=== PATIENT | female | born 1945 | race Asian ===

== ENCOUNTER 2017-07-31 14:20 | Inpatient (IN) | payer OTHER ==
--- NOTE | 2017-07-31 14:55 | PDOC ---
History of Present Illness - History of Present Illness Initial Comments: 07/31/17 15:07 Patient is a 71 F, with PMHx of diabetes, HTN, HLD, who was BIBA and presents s/ p fall today in front lawn. Patient states that she was on her phone and tripped on uneven pavement onto her left side. She was unable to walk or pick herself up. Family members called 911. She is currently complaining of pain to the left thigh. She states she is not in too much pain if she doesn't move her left leg but she is in severe pain if she palpates it or tries to move it. She denies recent fever, chills, chest pain, shortness of breath, nausea, vomiting, dizziness or lightheadedness. Social Hx: denies EtOH, tobacco, or drug use. Allergies: NKDA <Ruth Chacon - Last Filed: 07/31/17 15:07> <Natnaael Davis - Last Filed: 07/31/17 17:02> - General Chief Complaint: Injury Stated Complaint: LEFT THIGH PAIN Time Seen by Provider: 07/31/17 14:55 Past History <Ruth Chacon - Last Filed: 07/31/17 15:07> <Natanael Davis - Last Filed: 07/31/17 17:02> - Past Medical History Allergies/Adverse Reactions: Allergies Allergy/AdvReac Type Severity Reaction Status Date / Time No Known Allergies Allergy Verified 07/31/17 14:52 Home Medications: Ambulatory Orders Levothyroxine [Synthroid -] 50 mcg PO DAILY 07/31/17 Review of Systems - Review of Systems Comments:: 07/31/17 15:08 Constitutional: No recent illness; no fever Cardiovascular: No palpitations; no chest pain Pulmonary: No cough; no trouble breathing Gastrointestinal: No nausea; no vomiting; no diarrhea Genitourinary: No urinary problems; no hematuria Skin: No rash Musculoskeletal: +left thigh pain. Neurological: No weakness; no numbness; no Headache; no vertigo; no lightheadedness Psychiatric:No anxiety; no depression <Ruth Chacon - Last Filed: 07/31/17 15:07> *Physical Exam - Physical Exam Comments: 07/31/17 15:09 Vitals: Triage Vital signs reviewed General Appearance: no acute distress, well nourished well developed Head: Atraumatic Chest Wall: Nontender Cardiac: Regular rate and rhythm, no murmurs, no rubs, no gallops Lungs: Clear to auscultation bilateral, good air movement bilaterally Abdomen: Soft, non distended, normal bowel sounds, non tender to palpation Extremities: +severe pain to anterior aspect of left thigh. Skin: Warm and dry, no rashes or lesions, no rash, no petechiae Neuro: AOX3; Cranial Nerves 2-12 grossly intact. <Ruth Chacon - Last Filed: 07/31/17 15:07> ED Treatment Course - LABORATORY CBC & Chemistry Diagram: 07/31/17 15:45 07/31/17 15:45 <Natanael Davis - Last Filed: 07/31/17 17:02> Medical Decision Making - Medical Decision Making 07/31/17 16:51 Mechanical fall possible hip fracture IV pain medication given x-rays pendings Dr. Harrell to follow up xray labs and dispo <Natanael Davis - Last Filed: 07/31/17 17:02> *DC/Admit/Observation/Transfer - Attestations Scribe Attestion: 07/31/17 15:11 Documentation prepared by Ruth Chacon, acting as director medical surgical for Natanael Davis MD. <Ruth Chacon - Last Filed: 07/31/17 15:07> <Natanael Davis - Last Filed: 07/31/17 17:02> Diagnosis at time of Disposition: Leg pain Qualifiers: Laterality: left Qualified Code(s): M79.605 - Pain in left leg - Discharge Dispostion Condition at time of disposition: Good
[2017-07-31] MEDS ORDERED: morphine CARPU-JECT 4 MG/1 ML DISP.SYRIN IVPUSH ONE ×2 (15:01→17:14)
[2017-07-31 15:21] VITALS: BMI 29.2
[2017-07-31] MEDS ORDERED: morphine SULFATE 4 MG/ML VIAL ONE ×3 (15:37→20:29)
[2017-07-31 16:08] LABS: MEAN PLT VOLUME 12.9 fl (7.5-11.1); NEUT % 87.3 % (42.8-82.8); WHITE BLOOD COUNT 11.9 K/mm3 (4.0-10.8)
[2017-07-31 16:14] LABS: BASO % 0.1 % (0-2.0); EOS % 0.5 % (0-4.5); HEMATOCRIT 38.3 % (32.4-45.2); HEMOGLOBIN 12.1 GM/dl (10.7-15.3); LYMPH % 8.3 % (8-40); MCH 25.4 pg (25.7-33.7); MCHC 31.7 g/dl (32.0-36.0); MEAN CELL VOLUME 80.1 fl (80-96); MONO % 3.8 % (3.8-10.2); PLATELET COUNT 142 K/MM3 (134-434); RBC 4.79 M/mm3 (3.60-5.2); RDW 13.8 % (11.6-15.6)
[2017-07-31 16:19] LABS: ADD RBC MORPHOLOGY YES
[2017-07-31 16:26] LABS: ALBUMIN 3.6 g/dl (3.5-5.0); ALK PHOS 104 U/L (32-92); ANION GAP 10 (8-16); BILIRUBIN,TOTAL 0.8 mg/dl (0.2-1.0); BLOOD UREA NITROGEN 19 mg/dl (7-18); CALCIUM 8.9 mg/dl (8.4-10.2); CHLORIDE 99 mmol/L (98-107); CO2 27 mmol/L (22-28); CREATININE 0.9 mg/dl (0.6-1.3); GLUCOSE,RANDOM 131 mg/dl (74-106); POTASSIUM 3.8 mmol/L (3.5-5.1); SGOT/AST 27 U/L (10-42); SGPT/ALT 23 U/L (10-40); SODIUM 136 mmol/L (136-145); TOT PROT 7.8 g/dl (6.4-8.3)
[2017-07-31 16:31] LABS: ACTIVATED PTT 28.4 SECONDS (24.0-38.9)
[2017-07-31 16:35] LABS: INR 1.14 (0.82-1.09); PROTHROMBIN TIME (PATIENT) 12.7 SEC (10.2-13.0)
[2017-07-31 16:52] LABS: MACROCYTOSIS 1+; PLATELET ESTIMATE ADEQUATE
--- NOTE | 2017-07-31 17:34 | PDOC ---
*Physical Exam - Vital Signs Last Vital Signs Temp Pulse Resp BP Pulse Ox 98.1 F 100 H 18 130/80 100 07/31/17 14:52 07/31/17 14:52 07/31/17 14:52 07/31/17 14:52 07/31/17 14:52 ED Treatment Course - LABORATORY CBC & Chemistry Diagram: 07/31/17 15:45 07/31/17 15:45 - ADDITIONAL ORDERS Additional order review: Laboratory Results 07/31/17 07/31/17 15:45 15:45 PT with INR 12.7 INR 1.14 PTT (Actin FS) 28.4 Sodium 136 Potassium 3.8 Chloride 99 Carbon Dioxide 27 Anion Gap 10 BUN 19 H Creatinine 0.9 Creat Clearance w eGFR > 60 Random Glucose 131 H Calcium 8.9 Total Bilirubin 0.8 AST 27 ALT 23 Alkaline Phosphatase 104 H Total Protein 7.8 Albumin 3.6 07/31/17 15:45 RBC 4.79 MCV 80.1 MCHC 31.7 L RDW 13.8 MPV 12.9 H Neutrophils % 87.3 H Lymphocytes % 8.3 Monocytes % 3.8 Eosinophils % 0.5 Basophils % 0.1 - Medications Given in the ED: ED Medications Discontinued Medications Generic Name Dose Route Start Last Admin Trade Name Freq PRN Reason Stop Dose Admin Morphine Sulfate 4 mg 07/31/17 15:01 07/31/17 15:50 Morphine Injection - IVPUSH 07/31/17 15:02 4 mg ONCE ONE Administration Morphine Sulfate 4 mg 07/31/17 17:14 07/31/17 17:20 Morphine Injection - IVPUSH 07/31/17 17:15 4 mg ONCE ONE Administration Medical Decision Making - Medical Decision Making 07/31/17 17:33 I received patient on signout. She has a comminuted proximal femur fracture. SHe will requirte to [facility] to our [facility] facility and both hospitalist and ortho are aware. 08/01/17 02:07 Pt was transferred to the [facility] where she will be medically cleared for operative repair on late Thursday or Thursday *DC/Admit/Observation/Transfer Diagnosis at time of Disposition: Fracture of proximal end of left femur Leg pain Qualifiers: Laterality: left Qualified Code(s): M79.605 - Pain in left leg - Discharge Dispostion Condition at time of disposition: Guarded Admit: Yes - Referrals - Patient Instructions - Post Discharge Activity
[2017-07-31] MEDS ORDERED: morphine SULFATE 4 MG/ML VIAL IVPUSH PRN (18:15)
[2017-07-31 19:36] LABS: URINE APPEARANCE Clear; URINE BILIRUBIN Negative (NEGATIVE); URINE BLOOD Negative (NEGATIVE); URINE GLUCOSE (UA) Negative (NEGATIVE); URINE KETONE Negative (NEGATIVE); URINE LEUK ESTERASE Negative (NEGATIVE); URINE NITRITE Negative (NEGATIVE); URINE PROTEIN Negative (NEGATIVE); URINE UROBILINOGEN 0.2 (0.2-1.0)
[2017-07-31 19:42] LABS: URINE COLOR YELLOW
[2017-07-31] MEDS ORDERED: morphine SULFATE 4 MG/ML VIAL IVPUSH ONE (20:35)
[2017-07-31] MEDS ORDERED: ACETAMINOPHEN 325 MG TABLET (FP) PO PRN (22:24)
--- NOTE | 2017-07-31 22:28 | HP ---
CHIEF COMPLAINT: Fall while on phone in front lawn PCP: None Limitations to hx: pt very sedated HISTORY OF PRESENT ILLNESS: Pt is 71 yo F with pmh of NIDDM, HTN, HLD, hypothyroidism who presents from [facility] s/p a mechanical fall this AM. Per record, pt was ambulating in front of house while talking on phone and tripped on "uneven pavement", landing on her L side. After fall, pt endorsed severe pain in anterior thigh and was unable to walk or stand. Family alerted EMS and pt was brought into [facility] ED. On exam, pt very somnolent after receiving multiple rounds of morphine IV. Denied any pain at the time. Per record, pt denies fever, chills, chest pain, sob, N/V, dizziness or lightheadness. ER course was notable for: (1)L femoral XR with comminuted proximal femur fx (2)WBC 11.9 (3)Morphine IV x3 (4/4/2mg) Recent Travel: none PAST MEDICAL HISTORY: DM HTN HLD Hypothyroidism PAST SURGICAL HISTORY: Unknown Social History: Smoking:No Alcohol: no Drugs: no Family History: NC Allergies No Known Allergies Allergy (Verified 07/31/17 14:52) HOME MEDICATIONS: Home Medications Medication Instructions Recorded Alprazolam [Xanax] 0.25 mg PO HS 07/31/17 Atorvastatin Ca [Lipitor] 10 mg PO HS 07/31/17 Diclofenac Sodium [Diclofenac 100 mg PO DAILY PRN 07/31/17 Sodium ER] Glimepiride 2 mg PO DAILY 07/31/17 Levothyroxine [Synthroid -] 50 mcg PO DAILY 07/31/17 Mag Hydrox/Aluminum Hyd/Simeth 1 each PO PRN PRN 07/31/17 [Gelusil Tablet Chewable] Metformin HCl [Metformin HCl ER] 1,000 mg PO DAILY 07/31/17 Nitroglycerin ER Capsule - 2.5 mg PO BID 07/31/17 Pantoprazole Sodium [Protonix -] 40 mg PO DAILY 07/31/17 Patient Specific Medications [Pt 10 mg PO DAILY 07/31/17 Own Med Drawer -] Patient Specific Medications [Pt 20 mg PO DAILY 07/31/17 Own Med Drawer -] Telmisartan [Micardis] 40 mg PO HS 07/31/17 REVIEW OF SYSTEMS CONSTITUTIONAL: Absent: fever, chills, diaphoresis, generalized weakness, malaise, loss of appetite, weight change HEENT: Absent: rhinorrhea, nasal congestion, throat pain, throat swelling, difficulty swallowing, mouth swelling, ear pain, eye pain, visual changes CARDIOVASCULAR: Absent: chest pain, syncope, palpitations, irregular heart rate, lightheadedness , peripheral edema RESPIRATORY: Absent: cough, shortness of breath, dyspnea with exertion, orthopnea, wheezing, stridor, hemoptysis GASTROINTESTINAL: Absent: abdominal pain, abdominal distension, nausea, vomiting, diarrhea, constipation, melena, hematochezia GENITOURINARY: Absent: dysuria, frequency, urgency, hesitancy, hematuria, flank pain, genital pain MUSCULOSKELETAL: L thigh pain Absent: myalgia, arthralgia, joint swelling, back pain, neck pain SKIN: Absent: rash, itching, pallor HEMATOLOGIC/IMMUNOLOGIC: Absent: easy bleeding, easy bruising, lymphadenopathy, frequent infections ENDOCRINE: Absent: unexplained weight gain, unexplained weight loss, heat intolerance, cold intolerance NEUROLOGIC: Absent: headache, focal weakness or paresthesias, dizziness, unsteady gait, seizure, mental status changes, bladder or bowel incontinence PSYCHIATRIC: Absent: anxiety, depression, suicidal or homicidal ideation, hallucinations. PHYSICAL EXAMINATION Vital Signs - 24 hr 07/31/17 07/31/17 07/31/17 14:52 19:00 20:10 Temperature 98.1 F 98.6 F 98.6 F Pulse Rate 100 H 89 Pulse Rate [ 89 Right Radial] Respiratory 18 18 18 Rate Blood Pressure 130/80 136/78 Blood Pressure 136/78 [Left Arm] O2 Sat by Pulse 100 98 Oximetry (%) 07/31/17 20:40 Temperature 98.6 F Pulse Rate 89 Pulse Rate [ Right Radial] Respiratory 18 Rate Blood Pressure 136/78 Blood Pressure [Left Arm] O2 Sat by Pulse Oximetry (%) GENERAL: Elderly, very somnolent, NAD HEAD: NCAT; no ecchymoses, bone deformities or edema EYES: Pupils equal, round and reactive to light, extraocular movements intact, sclera anicteric, conjunctiva clear. No lid lag. EARS, NOSE, THROAT: Ears normal, nares patent, oropharynx clear without exudates. Moist mucous membranes. NECK: Normal range of motion, supple without lymphadenopathy, JVD, or masses. LUNGS: Breath sounds equal, clear to auscultation bilaterally. No wheezes, and no crackles. No accessory muscle use. HEART: Regular rate and rhythm, normal S1 and S2 without murmur, rub or gallop. ABDOMEN: Globular. Soft, nontender, normoactive bowel sounds, no guarding, no rebound, no masses. No hepatomegaly or splenomegaly. MUSCULOSKELETAL: Normal range of motion at all joints. No bony deformities or tenderness. No CVA tenderness. UPPER EXTREMITIES: 2+ pulses, warm, well-perfused. No cyanosis. No clubbing. No peripheral edema. LOWER EXTREMITIES: 2+ DP/PT pulses appreciable in LEs. Preserved sensation to touch BL in LEs. Movement in L hip limited by pain, splint. No notable edema or difference in caliber between thighs. No ecchymoses noted. NEUROLOGICAL: Cranial nerves grossly intact. Moving all extremities. PSYCHIATRIC: Very somnolent; interactive, pleasant Laboratory Results - last 24 hr CBC, BMP 07/31/17 15:45 07/31/17 15:45 07/31/17 07/31/17 07/31/17 15:45 15:45 15:45 WBC 11.9 H RBC 4.79 Hgb 12.1 Hct 38.3 MCV 80.1 MCH 25.4 L MCHC 31.7 L RDW 13.8 Plt Count 142 MPV 12.9 H Neutrophils % 87.3 H Lymphocytes % 8.3 Monocytes % 3.8 Eosinophils % 0.5 Basophils % 0.1 Hypochromia 1+ Platelet Estimate Adequate Platelet Comment Few large plts. Macrocytosis 1+ PT with INR 12.7 INR 1.14 PTT (Actin FS) 28.4 Sodium 136 Potassium 3.8 Chloride 99 Carbon Dioxide 27 Anion Gap 10 BUN 19 H Creatinine 0.9 Creat Clearance w eGFR > 60 Random Glucose 131 H Calcium 8.9 Total Bilirubin 0.8 AST 27 ALT 23 Alkaline Phosphatase 104 H Total Protein 7.8 Albumin 3.6 Urine Color Urine Appearance Urine pH Ur Specific [place] Urine Protein Urine Glucose (UA) Urine Ketones Urine Blood Urine Nitrite Urine Bilirubin Urine Urobilinogen Ur Leukocyte Esterase Blood Type Antibody Screen 07/31/17 07/31/17 07/31/17 15:45 15:55 19:15 WBC RBC Hgb Hct MCV MCH MCHC RDW Plt Count MPV Neutrophils % Lymphocytes % Monocytes % Eosinophils % Basophils % Hypochromia Platelet Estimate Platelet Comment Macrocytosis PT with INR INR PTT (Actin FS) Sodium Potassium Chloride Carbon Dioxide Anion Gap BUN Creatinine Creat Clearance w eGFR Random Glucose Calcium Total Bilirubin AST ALT Alkaline Phosphatase Total Protein Albumin Urine Color Yellow Urine Appearance Clear Urine pH 7.0 Ur Specific [place] 1.020 Urine Protein Negative Urine Glucose (UA) Negative Urine Ketones Negative Urine Blood Negative Urine Nitrite Negative Urine Bilirubin Negative Urine Urobilinogen 0.2 Ur Leukocyte Esterase Negative Blood Type O POSITIVE O POSITIVE Antibody Screen Negative No micro CXR 07/31 - Pending read Hip/femur XR 07/31 - Comminuted fx of the proximal femur noted. ASSESSMENT/PLAN: Pt is 71 yo F with pmh of NIDDM, HTN, HLD, hypothyroidism who presents from [facility] s/p a mechanical fall this AM. Now with imaging confirmed L femur fx. Plan for surgical correction tomorrow with Dr. Shields. #L femur fx - comminuted proximal L femur fx on XR - Ortho consulted - NPO after midnight - Pain control with IV tylenol - zofran IV for N/V - Bedrest - Splint applied - Neuro/vascular checks in L legs Q1h - Cardiac clearance for surgery - Echo - CBC, coags, CMP, type and cross - For likely surgical correction of fx tomorrow with Dr. Shields #HTN - hold ARB for now #HLD -c/w home statin #Hypothyroidism -c/w home synthroid #NIDDM - ISS - BGMs q4h FEN D5w-1/2 NS 75cc/hr Daily lytes NPO after midnight PPX Lovenox Plan discussed with attending, Dr. Francisco Ma, PGY1 Visit type - Emergency Visit Emergency Visit: Yes ED Registration Date: 07/31/17 Care time: The patient presented to the Emergency Department on the above date and was hospitalized for further evaluation of their emergent condition. - New Patient This patient is new to me today: Yes Date on this admission: 07/31/17 - Critical Care Critical Care patient: No Hospitalist Screening - Colonoscopy Questionnaire Colonoscopy Questionnaire: Colonoscopy Questionnaire - Patient: 50 - 75 years old and never had a screening colonoscopy: Unknown History of colon or rectal polyps, or CA: Unknown History of IBD, Crohn's disease or UC: Unknown History of abdominal radiation therapy as a child: Unknown - Relative: 1 with colon or rectal CA, or polyps at age 60 or younger: Unknown Colon or rectal CA diagnosed at age 45 or younger: Unknown Multiple relatives with colon or rectal CA: Unknown - Outcome: Screening Result: Negative Screen
[2017-07-31] MEDS ORDERED: DEXTROSE 5%-0.45% SALINE 1,000 ML IV SCH (22:30)
--- NOTE | 2017-07-31 22:51 | PN ---
Teaching Attending Note Name of Resident: Raffaele Ma ATTENDING PHYSICIAN STATEMENT I saw and evaluated the patient. Chart, data, imaging reviewed. I reviewed the resident's note and discussed the case with the resident. I agree with the resident's findings and plan as documented. History was obtained from chart and also via translation, Dr. Lopez who speaks [place] SUBJECTIVE: 71 F, with PMHx of diabetes, HTN, HLD, who was BIBA after fall after stepping on uneven pavement on 07/31, tripped, fell and landed on left hip. Denied any head trauma or LOC. She was found to have displaced left femur fracture. Dr. Shields of orthopedics is aware of case. She was given morphine in ER and subsequently developed nausea and vomiting. OBJECTIVE: Last Vital Signs Temp Pulse Resp BP Pulse Ox 98.6 F 89 18 136/78 98 07/31/17 20:40 07/31/17 20:40 07/31/17 20:40 07/31/17 20:40 07/31/17 19:00 general- vomiting at bedside heent- atraumatic, normocephalic, Perrla, moist mucous membranes Neck- supple cv-s1+S2+rrr chest - cta b/l abdomen- soft, nt, bs+, no masses ext- left lower ext- immobilized, sensation intact, no hematomas, or signs of vascular compromise. DP pulses intact b/l Abnormal Lab Results 07/31/17 07/31/17 15:45 15:45 WBC 11.9 H MCH 25.4 L MCHC 31.7 L MPV 12.9 H Neutrophils % 87.3 H BUN 19 H Random Glucose 131 H Alkaline Phosphatase 104 H EKG - Left axis deviation, possible LVH, RBBB xray of left hip- grossly displaced left femur fracture ASSESSMENT AND PLAN: #71yo woman woman with acute left femur fracture, left lower extremity neurovascularly and neurologically intact. Will need cardiology clearance as ekg abnormal. -admit to med/surg -pain control- no morphine as developed nausea and vomiting, use IV tylenol, toradol prn -left leg immobilization, splint -zofran prn if nausea/vomiting -elevate head of bed 30 degres -galo IV fluid hydration -transthoracic echo -cardiology evaluation for medical clearance -enoxaparin prophylactic dose -orthopedics consult -neuro checks of lower extremity q4hrs
[2017-07-31] MEDS ORDERED: ONDANSETRON 4 MG/2 ML VIAL IVPUSH PRN (23:02)
[2017-07-31] MEDS ORDERED: ACETAMINOPHEN 1000 MG/100 ML VIAL (NON FORMULARY) IVPB PRN (23:03)
[2017-07-31] MEDS ORDERED: ENOXAPARIN NA (PORCINE) 40 MG/0.4 ML DISP.SYRIN SQ ONE (23:32)
[2017-08-01] MEDS ORDERED: ENOXAPARIN NA (PORCINE) 40 MG/0.4 ML DISP.SYRIN SQ ONE (00:30)
[2017-08-01] MEDS: INSULIN SLIDING SCALE (NOVOLOG) 1 VIAL SQ SCH ×4 (06:25→22:18)
[2017-08-01] MEDS: LEVOTHYROXINE NA 50 MCG TABLET (FP) PO SCH (06:25)
[2017-08-01 07:56] LABS: BASO % 0.2 % (0-2.0); HEMOGLOBIN 9.7 GM/dL (10.7-15.3); LYMPH % 11.6 % (8-40); MCH 26.1 pg (25.7-33.7); MCHC 32.4 g/dl (32.0-36.0); MEAN CELL VOLUME 80.5 fl (80-96); MEAN PLT VOLUME 11.6 fl (7.5-11.1); MONO % 6.9 % (3.8-10.2); NEUT % 81.3 % (42.8-82.8); PLATELET COUNT 102 K/MM3 (134-434); RBC 3.73 M/mm3 (3.60-5.2); RDW 14.7 % (11.6-15.6); WHITE BLOOD COUNT 7.8 K/mm3 (4.0-10.0)
[2017-08-01 07:59] LABS: INR 1.16 (0.82-1.09); PROTHROMBIN TIME (PATIENT) 13.1 SEC (9.98-11.88)
[2017-08-01 08:24] LABS: CHLORIDE 101 mmol/L (98-107); POTASSIUM 3.9 mmol/L (3.5-5.1); SODIUM 137 mmol/L (136-145)
[2017-08-01 08:31] LABS: ALBUMIN 2.9 g/dl (3.4-5.0); ALK PHOS 101 U/L (45-117); ANION GAP 8 (8-16); BILIRUBIN,TOTAL 0.6 mg/dL (0.2-1.0); BLOOD UREA NITROGEN 18 mg/dL (7-18); CALCIUM 7.8 mg/dL (8.5-10.1); CO2 28 mmol/L (21-32); CREATININE 0.7 mg/dL (0.55-1.02); GLUCOSE,RANDOM 232 mg/dL (74-106); MAGNESIUM 1.8 mg/dL (1.8-2.4); PHOSPHOROUS 3.3 mg/dL (2.5-4.9); SGOT/AST 22 U/L (15-37); SGPT/ALT 20 U/L (12-78); TOT PROT 6.6 g/dl (6.4-8.2)
--- NOTE | 2017-08-01 10:05 | PN ---
Progress Note (short form) - Note Progress Note: c/o bladder pain and difficulty urinating. denies CP, SOB, fever, chills, N/V/C/ D. last BM 2 days ago Current Medications Generic Name Dose Route Start Last Admin Trade Name Freq PRN Reason Stop Dose Admin Acetaminophen 1,000 mg 07/31/17 23:03 Ofirmev Injection - IVPB Q6H PRN PAIN LEVEL 4 - 6 Dextrose/Sodium Chloride 1,000 mls @ 75 mls/hr 07/31/17 22:30 08/01/17 00:39 D5-1/2ns - IV 75 mls/hr ASDIR MARY Administration Insulin Aspart 1 vial 08/01/17 07:00 08/01/17 06:25 Novolog Vial Sliding Scale - SQ Not Given ACHS [facility] Protocol Levothyroxine Sodium 50 mcg 08/01/17 07:00 08/01/17 06:25 Synthroid - PO 50 mcg DAILY@0700 MARY Administration Ondansetron HCl 4 mg 07/31/17 23:02 Zofran Injection IVPUSH Q4H PRN NAUSEA AND/OR VOMITING Last Vital Signs Temp Pulse Resp BP Pulse Ox 98.3 F 106 H 18 147/90 93 L 08/01/17 06:47 08/01/17 06:47 08/01/17 06:47 08/01/17 06:47 07/31/17 21:45 General NAD CV S1 S2 RRR no murmur/rub/gallop Lungs CTA B/L no wheezing/rales/rhonchi Abdomen soft +distended +diffuse tenderness no rebound or guarding +suprapubic distnetion Extremities LLE shortened and externally rotated. no edema CBCD WBC 7.8 K/mm3 (4.0-10.0) 08/01/17 06:55 RBC 3.73 M/mm3 (3.60-5.2) 08/01/17 06:55 Hgb 9.7 GM/dL (10.7-15.3) L 08/01/17 06:55 Hct 30.0 % (32.4-45.2) L 08/01/17 06:55 MCV 80.5 fl (80-96) 08/01/17 06:55 MCHC 32.4 g/dl (32.0-36.0) 08/01/17 06:55 RDW 14.7 % (11.6-15.6) 08/01/17 06:55 Plt Count 102 K/MM3 (134-434) L 08/01/17 06:55 MPV 11.6 fl (7.5-11.1) H 08/01/17 06:55 CMP Sodium 137 mmol/L (136-145) 08/01/17 06:55 Potassium 3.9 mmol/L (3.5-5.1) 08/01/17 06:55 Chloride 101 mmol/L (98-107) 08/01/17 06:55 Carbon Dioxide 28 mmol/L (21-32) 08/01/17 06:55 Anion Gap 8 (8-16) 08/01/17 06:55 BUN 18 mg/dL (7-18) 08/01/17 06:55 Creatinine 0.7 mg/dL (0.55-1.02) 08/01/17 06:55 Creat Clearance w eGFR > 60 (>60) 08/01/17 06:55 Calcium 7.8 mg/dL (8.5-10.1) L 08/01/17 06:55 Total Bilirubin 0.6 mg/dL (0.2-1.0) 08/01/17 06:55 AST 22 U/L (15-37) 08/01/17 06:55 ALT 20 U/L (12-78) 08/01/17 06:55 Alkaline Phosphatase 101 U/L (45-117) 08/01/17 06:55 Total Protein 6.6 g/dl (6.4-8.2) 08/01/17 06:55 Albumin 2.9 g/dl (3.4-5.0) L 08/01/17 06:55 A/P 71yo F wtih PMH DM, HTn hypothyroid, and dyslipidemia and RBBB presented after tripping and falling on the sidewalk and found to have a L femoral fracture 1. L femoral fracture- s/p mechanical fall. will need cardio eval prior to clearance for surgery. NPO tonight for surgery in the AM. pain control, bedrest till then. ortho recommendations. PT after surgery. will likely require LEÓN on discharge. hold NSAID 2 RBBB- unclear if new or old. as per niece has no reports of CP or SOB. knows she does have intermittent palpitations. 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 will have cardio eval 3. Abdominal distention- low UOP noted since arrival. place mir for monitoring. if distention does not improve after placement will consider abdominal XR. no reports of not tolerating diet prior to arrival. BM 2 days ago 4. Normocytic anemia- likely dilutional. check iron stuides. trend hgb. no signs of bleeding. no indication for txn at this time 5. DM- hold oral agents. iss.bgm 6. HTN-above goal. may be due to pain. re-start home medication 7. dyslipidemia- statin 8. hypothyroid- LT4 9. anxiety- cont xanax hs 10. DVT ppx- hep sq 11, spoke with niece over the phone. obtained collateral information and updated on current plan. all questions answered. verbalized understanding and agreement Visit type - Emergency Visit Emergency Visit: Yes ED Registration Date: 07/31/17 Care time: The patient presented to the Emergency Department on the above date and was hospitalized for further evaluation of their emergent condition. - New Patient This patient is new to me today: Yes Date on this admission: 08/01/17 - Critical Care Critical Care patient: No - Discharge Referral Referred to [facility] Med P.C.: No
--- NOTE | 2017-08-01 11:02 | PN ---
Progress Note (short form) - Note Progress Note: Pt seen and examined. She has a comminuted left proximal femur fracture. S/P fall yesterday. I saw her in the [facility] last night. Medical and cardiac clearance is Pending. In addition, the surgical prosthesis and equipment is "on the way" to the hospital, it is not here yet. I spoke with the [place] [facility] rep about the equipment needed to perform the surgery. AVSS LLE NVI Now straight, in a knee immobilizer. Was shortened and rotated. No open aspect to her injury Good ROM at left ankle, foot, toes Xrays Show a highly comminuted, angulated and displaced left proximal femur fracture Imp 71 yo F with a comminuted left proximal femur fracture. Rec She needs surgery, a left long Gamma Nail/Intramedullary Nail. Medical and cardiac clearance Pending. NPO after midnight tonight in case she is cleared for tomorrow
[2017-08-01] MEDS: traMADol HCL 50 MG TABLET PO PRN (11:43)
[2017-08-01] MEDS: LOSARTAN POTASSIUM 25 MG TABLET PO SCH (11:43)
--- NOTE | 2017-08-01 11:54 | CON.CARD ---
Consult Consult Specialty:: Cardiology Referred by:: Yaz Reason for Consultation:: Preop evaluation - History of Present Illness Chief Complaint: fall History of Present Illness: Ms. Rodriguez is a 71 year old female with a pmhx of dm, htn, hld, and hypothyroidism who presented to [facility] s/p mechanical fall. Patient was walking in front of house when slipped. No LOC. No chest pain or palpitations prior. Found to have a left comminuted proximal femur fx. She saw a paint stock clerk in [place] but reports it was just for a check up she had no complaints. Reports no invasive testing was done and paint stock clerk did not feel she needed any invasive testing. She nevers has chest pain or sob. No recent palpitations. No pnd, orthopnea, or edema. No syncope. She can walk longer than 10 blocks with out complaints. - History Source History Provided By: Patient, Family Member, Medical Record - Past Medical History Cardio/Vascular: Yes: HTN, Hyperlipdemia ...: No Endocrine: Yes: Diabetes Mellitus, Hypothyroidism - Alcohol/Substance Use Hx Alcohol Use: No - Smoking History Smoking history: Never smoked Home Medications - Allergies Allergies/Adverse Reactions: Allergies Allergy/AdvReac Type Severity Reaction Status Date / Time No Known Allergies Allergy Verified 07/31/17 14:52 - Home Medications Home Medications: Ambulatory Orders Alprazolam [Xanax] 0.25 mg PO HS 07/31/17 Atorvastatin Ca [Lipitor] 10 mg PO HS 07/31/17 Diclofenac Sodium [Diclofenac Sodium ER] 100 mg PO DAILY PRN 07/31/17 Glimepiride 2 mg PO DAILY 07/31/17 Levothyroxine [Synthroid -] 50 mcg PO DAILY 07/31/17 Mag Hydrox/Aluminum Hyd/Simeth [Gelusil Tablet Chewable] 1 each PO PRN PRN 07/31 Metformin HCl [Metformin HCl ER] 1,000 mg PO DAILY 07/31/17 Nitroglycerin ER Capsule - 2.5 mg PO BID 07/31/17 Pantoprazole Sodium [Protonix -] 40 mg PO DAILY 07/31/17 Patient Specific Medications [Pt Own Med Drawer -] 10 mg PO DAILY 07/31/17 Patient Specific Medications [Pt Own Med Drawer -] 20 mg PO DAILY 07/31/17 Telmisartan [Micardis] 40 mg PO HS 07/31/17 Vital Signs: Vital Signs Temperature 98.3 F 08/01/17 06:47 Pulse Rate 106 H 08/01/17 06:47 Respiratory Rate 18 08/01/17 06:47 Blood Pressure 147/90 08/01/17 06:47 O2 Sat by Pulse Oximetry (%) 93 L 07/31/17 21:45 Constitutional: Yes: No Distress Neck: Yes: Supple Respiratory: Yes: CTA Bilaterally Gastrointestinal: Yes: Normal Bowel Sounds, Soft Cardiovascular: Yes: Regular Rate and Rhythm JVD: No Carotid Bruit: No PMI: Non-Displaced Heart Sounds: Yes: S1, S2 Murmur: No: Systolic Murmur Edema: No - Other Data Labs, Other Data: CBC, BMP 08/01/17 06:55 08/01/17 06:55 INR, PTT INR 1.16 (0.82-1.09) H 08/01/17 06:55 Imaging - Results Chest X-ray: Report Reviewed EKG: Image Reviewed Problem List - Problems (1) Fracture of proximal end of left femur Code(s): S72.002A - FRACTURE OF UNSP PART OF NECK OF LEFT FEMUR, INIT Assessment/Plan Ms. Rodriguez is a 71 year old female with a pmhx of dm, htn, hld, and hypothyroidism who presented to [facility] s/p mechanical fall. Patient was walking in front of house when slipped. No LOC. No chest pain or palpitations prior. Found to have a left comminuted proximal femur fx. She saw a paint stock clerk in [place] but reports it was just for a check up she had no complaints. Reports no invasive testing was done and paint stock clerk did not feel she needed any invasive testing. She nevers has chest pain or sob. No recent palpitations. No pnd, orthopnea, or edema. No syncope. She can walk longer than 10 blocks with out complaints. Unclear why she has nitroglycerin but says she never had chest pain or sob. EKG: sinus rhythm at 101bpm, lad, RBBB, no acute st changes CXR: clear lungs 1) Patient planned for orthopaedic surgery of L comminuted proximal femur fx Cardiac risk factors are htn, dm, and hld. She denies any chest pain or dyspnea on exertion. Exercise tolerance unlimited and definitely over 10 blocks as per patient and family. EKG with RBBB in sinus rhythm. No signs of chf on exam. No murmurs on cardiac exam. No further cardiac work up indicated to delay surgery. Intermediate cardiac risk for moderate risk surgery. Please call if any questions or need to re-consult
[2017-08-01] MEDS: HEPARIN NA (PORCINE) 5,000 UNITS/ML 1ML VIAL SQ SCH ×2 (15:16→22:34)
[2017-08-01] MEDS ORDERED: INSULIN (NOVOLOG) ASPART 100 UNITS/ML 10ML VIAL ONE (21:28)
[2017-08-01] MEDS: ALPRAZolam 0.25 MG TABLET PO SCH (22:18)
[2017-08-01] MEDS: ATORVASTATIN CA 10 MG TABLET (FP) PO SCH (22:18)
[2017-08-02] MEDS: HEPARIN NA (PORCINE) 5,000 UNITS/ML 1ML VIAL SQ SCH ×3 (05:53→22:06)
[2017-08-02] MEDS: INSULIN SLIDING SCALE (NOVOLOG) 1 VIAL SQ SCH ×4 (06:08→22:06)
[2017-08-02] MEDS: LEVOTHYROXINE NA 50 MCG TABLET (FP) PO SCH (06:09)
[2017-08-02 07:41] LABS: HEMATOCRIT 28.5 % (32.4-45.2); HEMOGLOBIN 9.3 GM/dL (10.7-15.3); MCH 26.2 pg (25.7-33.7); MCHC 32.6 g/dl (32.0-36.0); MEAN CELL VOLUME 80.4 fl (80-96); PLATELET COUNT 103 K/MM3 (134-434); RBC 3.54 M/mm3 (3.60-5.2); RDW 14.4 % (11.6-15.6); WHITE BLOOD COUNT 9.1 K/mm3 (4.0-10.0)
--- NOTE | 2017-08-02 08:13 | PN ---
Teaching Attending Note Name of Resident: Kizzy Cruz ATTENDING PHYSICIAN STATEMENT I saw and evaluated the patient. I reviewed the resident's note and discussed the case with the resident. I agree with the resident's findings and plan as documented. SUBJECTIVE:states pain is controlled. no abdominal pain. no BM in 2 days. denies CP, SOB, fever, chills, N/V/C/D OBJECTIVE: Last Vital Signs Temp Pulse Resp BP Pulse Ox 98.7 F 105 H 16 134/74 99 08/02/17 06:00 08/02/17 06:00 08/02/17 06:00 08/02/17 06:00 08/01/17 21:00 General NAD Abdomen soft slightly distended. NT no rebound or guarding Extremities +L hip tenderness shortened and externally rotated ASSESSMENT AND PLAN: 71yo F wtih PMH DM, HTn hypothyroid, and dyslipidemia and RBBB presented after tripping and falling on the sidewalk and found to have a L femoral fracture 1. L femoral fracture- s/p mechanical fall. evaulated by cardio. pt is intermediate risk for intermediate risk procedure. NPO for surgery today. PT eval will need [facility]N on discharge. further recommendations per ortho. pain control. 2 RBBB- unclear if new or old. evaluated by cardio and cleared for surgery. no indication for echo at this time. d/c 3. Abdominal distention-now improved. AXR showing ileus. tolerated diet yesterday with no nausea or vomiting. 4. Normocytic anemia- likely dilutional. Hgb stable. monitor closely post-op. iron stuides pending. txn as needed. 5. DM- hold oral agents. iss.bgm 6. HTN-improved. cont current management 7. dyslipidemia- statin 8. hypothyroid- LT4 9. anxiety- cont xanax hs 10. DVT ppx- hep sq
--- NOTE | 2017-08-02 08:36 | EKG ---
Test Reason : Blood Pressure : / mmHG Vent. Rate : 101 BPM Atrial Rate : 101 BPM P-R Int : 144 ms QRS Dur : 122 ms QT Int : 384 ms P-R-T Axes : 059 -54 021 degrees QTc Int : 497 ms SINUS TACHYCARDIA LEFT AXIS DEVIATION RIGHT BUNDLE BRANCH BLOCK ABNORMAL ECG NO PREVIOUS ECGS AVAILABLE Confirmed by LOWELL DELACRUZ, DANYELL ([id number]) on 08/02/2017 8:35:54 AM Referred By: MD LEYVA Confirmed By:DANYELL ETIENNE MD
[2017-08-02] MEDS: LOSARTAN POTASSIUM 25 MG TABLET PO SCH (09:11)
[2017-08-02] MEDS ORDERED: BUPIVACAINE HCL/PF 0.5% (5MG/ML) 10 ML VIAL ONE (12:28)
[2017-08-02] MEDS ORDERED: MIDAZOLAM HCL 2 MG/2 ML SINGLE DOSE VIAL ONE (12:29)
[2017-08-02] MEDS ORDERED: SODIUM CHLORIDE 0.9% P/F 10 ML VIAL IJ ONE (13:01)
[2017-08-02] MEDS ORDERED: ceFAZolin SODIUM 1 GM VIAL ONE (13:01)
[2017-08-02] MEDS ORDERED: ceFAZolin SODIUM 1 GM VIAL IVPB ONE (13:02)
[2017-08-02] MEDS ORDERED: PHENYLEPHRINE HCL 10 MG/1 ML SINGLE DOSE VIAL ONE (13:18)
--- NOTE | 2017-08-02 13:39 | PN ---
Physical Exam: SUBJECTIVE: Patient seen and examined patient resting in bed NAD. no acute events. afebrile, hemodynamically stable, slight tachycardia 105. complains of moderate lle pain relieved by morphine. denies f/c, cp, sob, cough. OBJECTIVE: Vital Signs Period Temp Pulse Resp BP Sys/Bull Pulse Ox Last 24 Hr 98.2 F-98.7 F 100-108 16-20 120-146/63-74 98-99 GENERAL: The patient is awake, alert, and fully oriented, in no acute distress. HEAD: Normal with no signs of trauma. EYES: PERRL, extraocular movements intact, sclera anicteric, conjunctiva clear. No ptosis. ENT: moist mucous membranes. NECK: supple. LUNGS: Breath sounds equal, clear to auscultation bilaterally HEART: Regular rate and rhythm, S1, S2 ABDOMEN: Soft, nontender, slightly distended, normoactive bowel sounds, no guarding, no rebound, no masses. EXTREMITIES: 2+ pulses, warm, well-perfused, no edema. L hip tender to palpation , externally rotated. NEUROLOGICAL: Cranial nerves II through XII grossly intact. Normal speech, gait not observed. PSYCH: Normal mood, normal affect. SKIN: Warm, dry Laboratory Results - last 24 hr 08/01/17 08/01/17 08/02/17 16:32 21:34 00:29 WBC RBC Hgb Hct MCV MCH MCHC RDW Plt Count MPV POC Glucometer 199 142 155 Ferritin 08/02/17 08/02/17 08/02/17 05:57 07:00 07:00 WBC 9.1 RBC 3.54 L Hgb 9.3 L Hct 28.5 L MCV 80.4 MCH 26.2 MCHC 32.6 RDW 14.4 Plt Count 103 L MPV 11.0 POC Glucometer 145 Ferritin 86.156 08/02/17 11:15 WBC RBC Hgb Hct MCV MCH MCHC RDW Plt Count MPV POC Glucometer 154 Ferritin Active Medications Generic Name Dose Route Start Last Admin Trade Name Freq PRN Reason Stop Dose Admin Acetaminophen 650 mg 08/01/17 10:55 Tylenol - PO Q6H PRN PAIN LEVEL 1-5 Alprazolam 0.25 mg 08/01/17 22:00 08/01/17 22:18 Xanax - PO 0.25 mg HS MARY Administration Atorvastatin Calcium 10 mg 08/01/17 22:00 08/01/17 22:18 Lipitor - PO 10 mg HS MARY Administration Heparin Sodium (Porcine) 5,000 unit 08/01/17 14:00 08/02/17 13:27 Heparin - SQ Not Given TID [facility] Insulin Aspart 1 vial 08/01/17 07:00 08/02/17 11:26 Novolog Vial Sliding Scale - SQ Not Given ACHS [facility] Protocol Levothyroxine Sodium 50 mcg 08/01/17 07:00 08/02/17 06:09 Synthroid - PO Not Given DAILY@0700 MARY Losartan Potassium 25 mg 08/01/17 10:45 08/02/17 09:11 Cozaar - PO 25 mg DAILY MARY Administration Ondansetron HCl 4 mg 07/31/17 23:02 Zofran Injection IVPUSH Q4H PRN NAUSEA AND/OR VOMITING Tramadol HCl 50 mg 08/01/17 10:37 08/01/17 11:43 Ultram - PO 50 mg Q6H PRN Administration PAIN LEVEL 4 - 6 ASSESSMENT/PLAN: Pt is 71 yo F with pmh of NIDDM, HTN, HLD, hypothyroidism who presented s/p a mechanical fall, found to have L femur fx comminuted proximal L femur fracture -imaging appreciated -OR today gamma nail -pain controlled with tylenol, ultram; post op recs per anesthesia -expect large blood loss, h/h post op -further recs per ortho abdominal distendion -kub appreciated, likely ileus -improving -colace HTN -hold ARB for now HLD -atorvastatin 10 hs Hypothyroidism -synthroid 50 mg d NIDDM - ISS required 4 u yesterday - BGM FEN fluids per surgery Daily lytes advance diet per surgery likely Lovenox post op m/s, will need snf Problem List - Problems (1) HTN (hypertension) Code(s): I10 - ESSENTIAL (PRIMARY) HYPERTENSION (2) HLD (hyperlipidemia) Code(s): E78.5 - HYPERLIPIDEMIA, UNSPECIFIED (3) Hypothyroid Code(s): E03.9 - HYPOTHYROIDISM, UNSPECIFIED (4) Diabetes Code(s): E11.9 - TYPE 2 DIABETES MELLITUS WITHOUT COMPLICATIONS (5) Fracture of proximal end of left femur Code(s): S72.002A - FRACTURE OF UNSP PART OF NECK OF LEFT FEMUR, INIT (6) Leg pain Code(s): M79.606 - PAIN IN LEG, UNSPECIFIED Qualifiers: Laterality: left Qualified Code(s): M79.605 - Pain in left leg Visit type - Emergency Visit Emergency Visit: Yes ED Registration Date: 07/31/17 Care time: The patient presented to the Emergency Department on the above date and was hospitalized for further evaluation of their emergent condition. - New Patient This patient is new to me today: Yes Date on this admission: 08/02/17 - Critical Care Critical Care patient: No - Discharge Referral Referred to [facility] Med P.C.: No
[2017-08-02] MEDS ORDERED: LABETALOL HCL 5 MG/1 ML (100MG/20 ML VIAL) ONE (14:06)
[2017-08-02] MEDS ORDERED: METOPROLOL TARTRATE 5 MG/5 ML VIAL ONE (14:06)
--- NOTE | 2017-08-02 15:11 | OP ---
Operative Note - Note: Operative Date: 08/02/17 Pre-Operative Diagnosis: left proximal femur fracture Operation: left femur Intramedullary racquel, Gamma Nail Implants: David Gamma Nail 380mm, 80mm lag screw, 45 distal locking screw Surgeon: Gideon Shields Anesthesiologist/CREDIT CONTROL ASSISTANT: Mc Mccauley Estimated Blood Loss (mls): 600 Drains, Volume Out (mls): 0 Blood Volume Replaced (mls): 350 Fluid Volume Replaced (mls): 2,500 Operative Report Dictated: Yes
[2017-08-02] MEDS ORDERED: PROMETHAZINE HCL 25 MG/1 ML VIAL IVPUSH PRN (15:14)
[2017-08-02] MEDS ORDERED: KETOROLAC TROMETHAMINE 30 MG/1 ML VIAL IVPUSH ONE (15:14)
[2017-08-02] MEDS ORDERED: ONDANSETRON 4 MG/2 ML VIAL IVPUSH PRN (15:14)
--- NOTE | 2017-08-02 16:05 | OP ---
DATE OF OPERATION: DATE OF DICTATION: 08/02/2017 PREOPERATIVE DIAGNOSIS: Left proximal femur fracture, comminuted, displaced and angulated. POSTOPERATIVE DIAGNOSIS: Left proximal femur fracture, comminuted, displaced and angulated. PROCEDURE: Left femur open reduction and internal fixation with intramedullary nail/gamma nail. SURGEON: Mike Magana MD DOG OR HORSE RACING OFFICIAL: None. ANESTHESIOLOGIST: Mc Mccauley MD ANESTHESIA: Spinal anesthesia with sedation. DRAINS: None. COMPLICATIONS: None. SPECIMEN: None. BLOOD LOSS: 600 mL. BLOOD GIVEN: Two units of packed red blood cells/700 mL. FLUID REPLACEMENT: 2500 mL. INDICATIONS: This patient is a 71-year-old female with preoperative diagnosis of a bad fracture of the left femur. It was a comminuted, displaced and angulated proximal femur fracture with multiple butterfly fragments. After understanding the potential risks, complications, alternatives and benefits of surgery versus nonsurgical treatment, she and her family elected to undergo this procedure. DESCRIPTION OF PROCEDURE: The patient was brought to the operating room, peripheral IV placed, IV sedation given, 1 g of IV Ancef was given. Spinal anesthesia was induced with sedation. The patient was placed onto the fracture table with ample padding throughout. The left lower extremity was prepped and draped in a sterile fashion. X-rays were taken. It was so displaced that I opted to start with the open reduction. A lateral incision was made about 5 inches in length right at the fracture site of the proximal diaphysis of the left femur. Subcutaneous hemostasis achieved with a Bovie cautery. Dissection done down to the lateral fascia where the retractors were placed into the wound. The lateral ITP was longitudinally incised and blunt dissection done down to the femur. There was muscle debris within the femur. This was removed. There was a hematoma which was removed. There was significant displacement and angulation. I was able to manipulate it manually and using an alligator forceps holding the provisional reduction in a much a better position. Next, we proceeded with the standard long gamma nail technique. A proximal incision was made. Subcutaneous hemostasis achieved with a Bovie cautery. Dissection done down to the proximal femur. Bell elevator used to do a periosteal clearing. Using direct C-Arm fluoroscopy guidance, a partially threaded guidewire was placed through the proximal fragment, into the medullary canal of the distal fragment. Multiple AP and lateral x-rays were taking documenting position within the medullary canal. We put it down to the appropriate depth at the knee and measured 380 mm; that would be the length of the racquel. Next, using the proximal reamer and sequential flexible reamers from 9 to 12 mm in length, we prepared the medullary canal. It continued to align better and I put in a David titanium G3 gamma nail of 380 mm in length. This further helped the fracture reduction. The tension was taken off to help as well. Using the external guide in putting in an 80 mm lag screw and proximal set screw, the jig was removed and then using the perfect [place] technique I put in a distal interlocking screw of 45 mm in length. X-rays were taken in the AP and lateral planes, documenting good position of all the hardware, the fracture fragments. Better compression was achieved and we were done with fluoroscopy. The distal small poke wound was closed with 2-0 Vicryl and zack. The proximal wound was closed with 0-Vicryl in the deep fascia layer, 2-0 Vicryl in the deep dermal layer and zack. The middle wound I put in 10 mL of Lisa putty bone graft in and around the entire fracture fragments circumferentially. I was able to push it down off the to the racquel into the medullary canal and put it all around the fracture site. Next I closed the deep fascia with 0-Vicryl. Final skin reapproximation was done with 2-0 Vicryl and zack. The area was then washed and dried and covered with 3 Aquacel dressings. Total operative time was 1 hour and 40 minutes. There were no complications during the case except the patient was tachycardic the entire time, even before we made an incision; even before the anesthesia was induced the patient had a heart rate of 115. There were no cardiovascular complications during the case, however. She was stable. Because of the 600 mL of blood loss we did transfuse 2 units of packed red blood cells, one in the operating room, one in the recovery room. Leg lengths were checked and they seemed to be equal at the end of the case. MIKE MAGANA M.D. [id number]
[2017-08-02] MEDS: LACTATED RINGERS SOLUTION 1,000 ML IV SCH (17:07)
[2017-08-02] MEDS: traMADol HCL 50 MG TABLET PO PRN (18:53)
[2017-08-02 18:59] LABS: HEMATOCRIT 31.5 % (32.4-45.2); HEMOGLOBIN 10.5 GM/dL (10.7-15.3); MCH 27.6 pg (25.7-33.7); MCHC 33.2 g/dl (32.0-36.0); MEAN CELL VOLUME 83.1 fl (80-96); MEAN PLT VOLUME 11.2 fl (7.5-11.1); PLATELET COUNT 90 K/MM3 (134-434); RBC 3.79 M/mm3 (3.60-5.2); RDW 14.9 % (11.6-15.6); WHITE BLOOD COUNT 9.7 K/mm3 (4.0-10.0)
[2017-08-02] MEDS ORDERED: PT OWN MED DRAWER 7, Y5N ONE (22:05)
[2017-08-02] MEDS: ATORVASTATIN CA 10 MG TABLET (FP) PO SCH (22:06)
[2017-08-02] MEDS: ALPRAZolam 0.25 MG TABLET PO SCH (22:06)
[2017-08-03] MEDS: traMADol HCL 50 MG TABLET PO PRN ×3 (04:44→21:21)
--- NOTE | 2017-08-03 06:11 | PN ---
Physical Exam: SUBJECTIVE: Patient seen and examined - Tachy to 110s, hypotensive to 90s systolic at 1:30 last night; s/p gamma nail surgical correction of comminuted L femoral fx on 08/[address] Shields; Mild L hip pain, no other complaints; denies f/c/n/v/d, cp, sob, cough, ab pain, back pain, LE edema OBJECTIVE: Vital Signs Intake & Output 07/31/17 08/01/17 08/02/17 08/03/17 23:59 23:59 23:59 23:59 Intake Total 2375 3650 Output Total 1400 2600 Balance 975 1050 Weight 74.843 kg Period Temp Pulse Resp BP Sys/Bull Pulse Ox Last 24 Hr 98.2 F-98.9 F 100-127 16-20 90-146/50-75 97-100 GENERAL: Elderly, NAD, A&Ox1 HEAD: NCAT EYES: Pupils equal, round and reactive to light, extraocular movements intact, sclera anicteric, conjunctiva clear. No lid lag. EARS, NOSE, THROAT: Ears normal, nares patent, oropharynx clear without exudates. Moist mucous membranes. NECK: Normal range of motion, supple without lymphadenopathy, JVD, or masses. Poor dentition. LUNGS: Breath sounds equal, clear to auscultation bilaterally. No wheezes, and no crackles. No accessory muscle use. HEART: Regular rate and rhythm, normal S1 and S2 without murmur, rub or gallop. ABDOMEN: Globular. Soft, nontender, normoactive bowel sounds, no guarding, no rebound, no masses. No hepatomegaly or splenomegaly. MUSCULOSKELETAL: L leg with mild edema around hip. Surgical site bandages c/d/ i. Normal range of motion at all joints. No bony deformities or tenderness. No CVA tenderness. UPPER EXTREMITIES: 2+ pulses, warm, well-perfused. No cyanosis. No clubbing. No peripheral edema. LOWER EXTREMITIES: 1+ DP/PT pulses appreciable in LEs. Preserved sensation to touch BL in LEs. NEUROLOGICAL: Cranial nerves grossly intact. Moving all extremities. PSYCHIATRIC: interactive, pleasant Laboratory Results - last 24 hr CBC, BMP 08/03/17 08:07 08/02/17 18:48 08/01/17 06:55 08/01/17 08/02/17 08/02/17 06:55 05:57 07:00 WBC 9.1 RBC 3.54 L Hgb 9.3 L Hct 28.5 L MCV 80.4 MCH 26.2 MCHC 32.6 RDW 14.4 Plt Count 103 L MPV 11.0 POC Glucometer 145 Ferritin Blood Type O POSITIVE Antibody Screen Negative Crossmatch IS Only See Detail 08/02/17 08/02/17 08/02/17 07:00 11:15 18:48 WBC 9.7 RBC 3.79 Hgb 10.5 L D Hct 31.5 L MCV 83.1 MCH 27.6 MCHC 33.2 RDW 14.9 Plt Count 90 L MPV 11.2 H POC Glucometer 154 Ferritin 86.156 Blood Type Antibody Screen Crossmatch IS Only 08/02/17 08/03/17 22:00 05:35 WBC RBC Hgb Hct MCV MCH MCHC RDW Plt Count MPV POC Glucometer 197 170 Ferritin Blood Type Antibody Screen Crossmatch IS Only Active Medications Generic Name Dose Route Start Last Admin Trade Name Freq PRN Reason Stop Dose Admin Acetaminophen 650 mg 08/01/17 10:55 Tylenol - PO Q6H PRN PAIN LEVEL 1-5 Alprazolam 0.25 mg 08/01/17 22:00 08/02/17 22:06 Xanax - PO 0.25 mg HS MARY Administration Atorvastatin Calcium 10 mg 08/01/17 22:00 08/02/17 22:06 Lipitor - PO 10 mg HS MARY Administration Docusate Sodium 100 mg 08/02/17 13:50 Colace - PO BID PRN CONSTIPATION Fentanyl 50 mcg 08/02/17 15:14 Sublimaze Injection - IVPUSH Q5M PRN PAIN-PACU ORDER X 4 DOSES ONLY Heparin Sodium (Porcine) 5,000 unit 08/01/17 14:00 08/02/17 22:06 Heparin - SQ 5,000 unit TID MARY Administration Lactated Ringer's 1,000 mls @ 125 mls/hr 08/02/17 15:15 08/02/17 17:07 Lactated Ringers Solution IV Not Given ASDIR MARY Insulin Aspart 1 vial 08/01/17 07:00 08/02/17 22:06 Novolog Vial Sliding Scale - SQ 2 units ACHS MARY Administration Protocol Levothyroxine Sodium 50 mcg 08/01/17 07:00 08/02/17 06:09 Synthroid - PO Not Given DAILY@0700 MARY Losartan Potassium 25 mg 08/01/17 10:45 08/02/17 09:11 Cozaar - PO 25 mg DAILY MARY Administration Ondansetron HCl 4 mg 07/31/17 23:02 08/02/17 18:53 Zofran Injection IVPUSH 4 mg Q4H PRN Administration NAUSEA AND/OR VOMITING Ondansetron HCl 4 mg 08/02/17 15:14 Zofran Injection IVPUSH Q6H PRN NAUSEA AND/OR VOMITING Promethazine HCl 12.5 mg 08/02/17 15:14 Phenergan Injection - IVPUSH Q6H PRN NAUSEA-FOR RESCUE AFTER 15 MIN Tramadol HCl 50 mg 08/01/17 10:37 08/03/17 04:44 Ultram - PO 50 mg Q6H PRN Administration PAIN LEVEL 4 - 6 NO micro CXR 07/31 - prominent mediastinum; no acute pathology Hip/femur XR 07/31 - Comminuted fx of the proximal femur noted. Abdominal XR 08/01 - abdominal distension compatible with ileus. Left femoral fx. ASSESSMENT/PLAN: (Draft, do not reference for clinical care) Pt is 71 yo F with pmh of NIDDM, HTN, HLD, hypothyroidism who presents from [place] s/p a mechanical fall this AM. Now with imaging confirmed L femur fx. Surgical correction on 08/[address] Shields, POD1, doing well. #L femur fx - comminuted proximal L femur fx on XR - Ortho following - PWB - OOB - Pain control with PO tylenol - phenergan, zofran for N/V - d/c to [facility] once bed available - neuro/vascular checks Qshift - ultram for muscle spasms - d/c IVFs #anemia -9.0 today -significant blood loss during surg; 2 units intraop - trend hgb; serial cbcs - transfuse at <7 - CT L leg if continues dropping #HTN -restarted home ARB #Constipation - colace - miralax prn #HLD -c/w home statin #Hypothyroidism -c/w home synthroid #NIDDM - ISS - BGMs q4h FEN LR 125 Daily lytes sodium controlled diet PPX HSQ Plan discussed with attending, Dr. Yaz Ma, PGY1 Visit type - Emergency Visit Emergency Visit: Yes ED Registration Date: 07/31/17 Care time: The patient presented to the Emergency Department on the above date and was hospitalized for further evaluation of their emergent condition. - New Patient This patient is new to me today: No - Critical Care Critical Care patient: No
[2017-08-03] MEDS: HEPARIN NA (PORCINE) 5,000 UNITS/ML 1ML VIAL SQ SCH ×3 (06:28→21:21)
[2017-08-03] MEDS: INSULIN SLIDING SCALE (NOVOLOG) 1 VIAL SQ SCH ×4 (06:29→21:26)
[2017-08-03] MEDS: LEVOTHYROXINE NA 50 MCG TABLET (FP) PO SCH (06:29)
[2017-08-03 08:09] LABS: SERUM IRON SATURATION 9 % (15-55); TOTAL IRON BINDING CAPACITY 286 ug/dL (250-450); UIBC 261 ug/dL (118-369)
--- NOTE | 2017-08-03 08:09 | PN ---
Progress Note (short form) - Note Progress Note: Anesthesia post S:alert aND AWAKE comfortable O: Vital Signs Temperature 98.6 F 08/03/17 06:00 Pulse Rate 108 H 08/03/17 06:00 Respiratory Rate 20 08/03/17 06:00 Blood Pressure 105/65 08/03/17 06:00 O2 Sat by Pulse Oximetry (%) 97 08/02/17 22:00 CBC, BMP 08/02/17 18:48 08/01/17 06:55 A/P: Current Active Problems Current Active Problems Diabetes (Acute) Fracture of proximal end of left femur (Acute) HLD (hyperlipidemia) (Acute) HTN (hypertension) (Acute) Hypothyroid (Acute) Leg pain (Acute) s/p left hip gamma nail Doing well post op Eric Jones MD
[2017-08-03 08:17] LABS: BASO % 0.2 % (0-2.0); EOS % 0.3 % (0-4.5); HEMATOCRIT 28.4 % (32.4-45.2); HEMOGLOBIN 9.6 GM/dL (10.7-15.3); LYMPH % 14.9 % (8-40); MCH 27.8 pg (25.7-33.7); MCHC 33.9 g/dl (32.0-36.0); NEUT % 72.6 % (42.8-82.8); PLATELET COUNT 87 K/MM3 (134-434); RBC 3.47 M/mm3 (3.60-5.2); RDW 14.8 % (11.6-15.6); WHITE BLOOD COUNT 9.6 K/mm3 (4.0-10.0)
[2017-08-03 08:50] LABS: ALBUMIN 2.2 g/dl (3.4-5.0); ANION GAP 9 (8-16); BILIRUBIN,TOTAL 1.1 mg/dL (0.2-1.0); BLOOD UREA NITROGEN 23 mg/dL (7-18); CALCIUM 7.6 mg/dL (8.5-10.1); CHLORIDE 102 mmol/L (98-107); CO2 26 mmol/L (21-32); GLUCOSE,RANDOM 142 mg/dL (74-106); MAGNESIUM 1.8 mg/dL (1.8-2.4); PHOSPHOROUS 2.7 mg/dL (2.5-4.9); POTASSIUM 3.9 mmol/L (3.5-5.1); SGOT/AST 36 U/L (15-37); SGPT/ALT 15 U/L (12-78); SODIUM 137 mmol/L (136-145); TOT PROT 5.1 g/dl (6.4-8.2)
[2017-08-03 08:51] LABS: ALK PHOS 68 U/L (45-117); CREATININE 0.7 mg/dL (0.55-1.02)
--- NOTE | 2017-08-03 08:58 | PN ---
Progress Note (short form) - Note Progress Note: Ortho Pt seen and examined s/p left IM gamma nail pod #1 Selected Entries 08/03/17 06:00 Temperature 98.6 F Pulse Rate 108 H Respiratory 20 Rate Blood Pressure 105/65 Laboratory Tests 08/03/17 08:07 WBC 9.6 Hgb 9.6 L Hct 28.4 L Plt Count 87 L dressing c/d/i, calf soft, nt nvi a/p PT PWB oob dvt ppx pain control d/c planning
[2017-08-03] MEDS: LOSARTAN POTASSIUM 25 MG TABLET PO SCH (10:41)
[2017-08-03] MEDS: LACTATED RINGERS SOLUTION 1,000 ML IV SCH ×2 (10:42→14:38)
[2017-08-03] MEDS ORDERED: POLYETHYLENE GLYCOL 3350 119 GM BTL PO ONE (11:54)
[2017-08-03 13:12] LABS: BASO % 0.4 % (0-2.0); EOS % 0.7 % (0-4.5); HEMATOCRIT 26.8 % (32.4-45.2); LYMPH % 15.3 % (8-40); MCH 27.7 pg (25.7-33.7); MCHC 33.7 g/dl (32.0-36.0); MEAN CELL VOLUME 82.2 fl (80-96); MEAN PLT VOLUME 11.2 fl (7.5-11.1); MONO % 12.7 % (3.8-10.2); NEUT % 70.9 % (42.8-82.8); PLATELET COUNT 87 K/MM3 (134-434); RBC 3.26 M/mm3 (3.60-5.2); RDW 14.9 % (11.6-15.6); WHITE BLOOD COUNT 9.6 K/mm3 (4.0-10.0)
--- NOTE | 2017-08-03 13:31 | PN ---
Teaching Attending Note Name of Resident: Raffaele Ma ATTENDING PHYSICIAN STATEMENT I saw and evaluated the patient. I reviewed the resident's note and discussed the case with the resident. I agree with the resident's findings and plan as documented. SUBJECTIVE:asymptomatic. denies Cp, SOB, fever, chills, N/V/C/D OBJECTIVE: Last Vital Signs Temp Pulse Resp BP Pulse Ox 98.4 F 111 H 20 113/50 95 08/03/17 08:00 08/03/17 10:00 08/03/17 10:00 08/03/17 10:00 08/03/17 08:00 General NAD Abdomen soft NT/ND normoactive BS Extremities +L hip tenderness, thigh is soft ASSESSMENT AND PLAN: 71yo F wtih PMH DM, HTn hypothyroid, and dyslipidemia and RBBB presented after tripping and falling on the sidewalk and found to have a L femoral fracture 1. L femoral fracture- s/p mechanical fall. s/p Femur intramedullary racquel 08/02. further recommendations by ortho. PT eval today. will need [facility] on discharge. 2. acute blood loss anemia- significant blood loss during sx yesterday. received 2 units PRBC intra-operatively. will trend Hgb repeat this afternoon. normal transfusion threshols. consider CT of the extremity if continues to drop. iron studies pending 3 RBBB- unclear if new or old. evaluated by cardio and cleared for surgery. 4. Abdominal distention-now improved, distention and pain resolved. cont to monitor 5. DM- hold oral agents. iss.bgm 6. HTN-improved. cont current management 7. dyslipidemia- statin 8. hypothyroid- LT4 9. anxiety- cont xanax hs 10. DVT ppx- hep sq 11. will need [facility] on discharge
[2017-08-03] MEDS: ACETAMINOPHEN 325 MG TABLET (FP) PO PRN (17:16)
[2017-08-03] MEDS ORDERED: INSULIN (NOVOLOG) ASPART 100 UNITS/ML 10ML VIAL ONE (21:19)
[2017-08-03] MEDS: ALPRAZolam 0.25 MG TABLET PO SCH (21:21)
[2017-08-03] MEDS: ATORVASTATIN CA 10 MG TABLET (FP) PO SCH (21:21)
[2017-08-03] MEDS: DOCUSATE SODIUM 100 MG CAPSULE (FP) PO PRN (21:21)
[2017-08-04] MEDS: LACTATED RINGERS SOLUTION 1,000 ML IV SCH (05:46)
[2017-08-04] MEDS: HEPARIN NA (PORCINE) 5,000 UNITS/ML 1ML VIAL SQ SCH ×3 (05:49→21:24)
[2017-08-04] MEDS: ACETAMINOPHEN 325 MG TABLET (FP) PO PRN ×2 (05:51→21:23)
[2017-08-04] MEDS: LEVOTHYROXINE NA 50 MCG TABLET (FP) PO SCH (06:38)
[2017-08-04] MEDS: INSULIN SLIDING SCALE (NOVOLOG) 1 VIAL SQ SCH ×4 (06:39→22:50)
[2017-08-04] MEDS ORDERED: guaiFENesin/D-M SUGAR-FREE/ACLHOL-FREE 118 ML BOTTLE PO PRN (07:01)
--- NOTE | 2017-08-04 07:19 | PN ---
Physical Exam: SUBJECTIVE: Patient seen and examined - No major overnight events. Borderline fever to 100.1, hypotensive to 80s systolic yesterday; responded to fluids; Pt complaining of L anterior thigh pain. Denies f/c/v/n/d, CP, ab pain, back pain, LE edema, SOB, cough, GRIFFITH; Received one unit pRbcs in AM OBJECTIVE: Vital Signs Intake & Output 08/01/17 08/02/17 08/03/17 08/04/17 23:59 23:59 23:59 23:59 Intake Total 2375 3650 2775 1500 Output Total 1400 2600 300 Balance 975 1050 2475 1500 Period Temp Pulse Resp BP Sys/Bull Pulse Ox Last 24 Hr 98 F-100.1 F 80-118 20-20 88-122/50-77 95-97 GENERAL: Elderly woman, NAD HEAD: NCAT EYES: Pupils equal, round and reactive to light, extraocular movements intact, sclera anicteric, conjunctiva clear. No lid lag. EARS, NOSE, THROAT: Poor dentition. Ears normal, nares patent, oropharynx clear without exudates. Moist mucous membranes. NECK: Normal range of motion, supple without lymphadenopathy, JVD, or masses. LUNGS: Breath sounds equal, clear to auscultation bilaterally. No wheezes, and no crackles. No accessory muscle use. HEART: Regular rate and rhythm, normal S1 and S2 without murmur, rub or gallop. ABDOMEN: Globular. Soft, nontender, normoactive bowel sounds, no guarding, no rebound, no masses. No hepatomegaly or splenomegaly. MUSCULOSKELETAL: Mild edema in upper thigh, no appreciable ecchymoses. Surgical site bandages c/d/i. Normal range of motion at all joints. No bony deformities or tenderness. No CVA tenderness. UPPER EXTREMITIES: 2+ pulses, warm, well-perfused. No cyanosis. No clubbing. No peripheral edema. LOWER EXTREMITIES: 1+ DP/PT pulses appreciable in LEs. Preserved sensation to touch BL in LEs. NEUROLOGICAL: Cranial nerves grossly intact. Moving all extremities. PSYCHIATRIC: interactive, pleasant Laboratory Results - last 24 hr CBC, BMP 08/03/17 12:50 08/03/17 08:07 08/02/17 08/02/17 08/03/17 07:00 16:29 08:07 WBC 9.6 RBC 3.47 L Hgb 9.6 L Hct 28.4 L MCV 82.0 MCH 27.8 MCHC 33.9 RDW 14.8 Plt Count 87 L MPV 11.0 Neutrophils % 72.6 Lymphocytes % 14.9 D Monocytes % 12.0 H Eosinophils % 0.3 D Basophils % 0.2 Sodium Potassium Chloride Carbon Dioxide Anion Gap BUN Creatinine Creat Clearance w eGFR POC Glucometer 138 Random Glucose Calcium Phosphorus Magnesium Iron 25 L TIBC 286 Iron Saturation 9 L Total Bilirubin AST ALT Alkaline Phosphatase Total Protein Albumin 08/03/17 08/03/17 08/03/17 08:07 12:06 12:50 WBC 9.6 RBC 3.26 L Hgb 9.0 L Hct 26.8 L MCV 82.2 MCH 27.7 MCHC 33.7 RDW 14.9 Plt Count 87 L MPV 11.2 H Neutrophils % 70.9 Lymphocytes % 15.3 Monocytes % 12.7 H Eosinophils % 0.7 D Basophils % 0.4 Sodium 137 Potassium 3.9 Chloride 102 Carbon Dioxide 26 Anion Gap 9 BUN 23 H Creatinine 0.7 Creat Clearance w eGFR > 60 POC Glucometer 229 Random Glucose 142 H Calcium 7.6 L Phosphorus 2.7 Magnesium 1.8 Iron TIBC Iron Saturation Total Bilirubin 1.1 H D AST 36 ALT 15 Alkaline Phosphatase 68 Total Protein 5.1 L Albumin 2.2 L 08/03/17 08/03/17 08/04/17 15:53 20:58 05:44 WBC RBC Hgb Hct MCV MCH MCHC RDW Plt Count MPV Neutrophils % Lymphocytes % Monocytes % Eosinophils % Basophils % Sodium Potassium Chloride Carbon Dioxide Anion Gap BUN Creatinine Creat Clearance w eGFR POC Glucometer 215 209 162 Random Glucose Calcium Phosphorus Magnesium Iron TIBC Iron Saturation Total Bilirubin AST ALT Alkaline Phosphatase Total Protein Albumin Active Medications Generic Name Dose Route Start Last Admin Trade Name Freq PRN Reason Stop Dose Admin Acetaminophen 650 mg 08/01/17 10:55 08/04/17 05:51 Tylenol - PO 650 mg Q6H PRN Administration PAIN LEVEL 1-5 Alprazolam 0.25 mg 08/01/17 22:00 08/03/17 21:21 Xanax - PO 0.25 mg HS MARY Administration Atorvastatin Calcium 10 mg 08/01/17 22:00 08/03/17 21:21 Lipitor - PO 10 mg HS MARY Administration Docusate Sodium 100 mg 08/02/17 13:50 08/03/17 21:21 Colace - PO 100 mg BID PRN Administration CONSTIPATION Guaifenesin 5 ml 08/04/17 07:01 Diabetic Tussin Dm - PO Q4H PRN COUGH Heparin Sodium (Porcine) 5,000 unit 08/01/17 14:00 08/04/17 05:49 Heparin - SQ 5,000 unit TID MARY Administration Lactated Ringer's 1,000 mls @ 125 mls/hr 08/02/17 15:15 08/04/17 05:46 Lactated Ringers Solution IV 125 mls/hr ASDIR MARY Administration Insulin Aspart 1 vial 08/01/17 07:00 08/04/17 06:39 Novolog Vial Sliding Scale - SQ 2 units ACHS MARY Administration Protocol Levothyroxine Sodium 50 mcg 08/01/17 07:00 08/04/17 06:38 Synthroid - PO 50 mcg DAILY@0700 MARY Administration Losartan Potassium 25 mg 08/01/17 10:45 08/03/17 10:41 Cozaar - PO 25 mg DAILY MARY Administration Ondansetron HCl 4 mg 07/31/17 23:02 08/02/17 18:53 Zofran Injection IVPUSH 4 mg Q4H PRN Administration NAUSEA AND/OR VOMITING Ondansetron HCl 4 mg 08/02/17 15:14 Zofran Injection IVPUSH Q6H PRN NAUSEA AND/OR VOMITING Promethazine HCl 12.5 mg 08/02/17 15:14 Phenergan Injection - IVPUSH Q6H PRN NAUSEA-FOR RESCUE AFTER 15 MIN Tramadol HCl 50 mg 08/01/17 10:37 08/03/17 21:21 Ultram - PO 50 mg Q6H PRN Administration PAIN LEVEL 4 - 6 No micro CXR 07/31 - prominent mediastinum; no acute pathology Hip/femur XR 07/31 - Comminuted fx of the proximal femur noted. Abdominal XR 08/01 - abdominal distension compatible with ileus. Left femoral fx. ASSESSMENT/PLAN: Pt is 71 yo F with pmh of NIDDM, HTN, HLD, hypothyroidism who presents from [place] s/p a mechanical fall this AM. Now with imaging confirmed L femur fx. Surgical correction on 08/[address] Shields, POD2, continues to do well. Can discharge from ortho team. #L femur fx - comminuted proximal L femur fx on XR; POD2 - Ortho following - plan for d/c tomorrow to [facility] - PWB - OOB - Pain control with PO tylenol - phenergan, zofran for N/V - d/c to [facility] once bed available - neuro/vascular checks Qshift - ultram for muscle spasms - PO hydration - CT L LE to evaluate for hematoma given drop in Hgb - interval thigh circumferences - PT #anemia -9.0 -> 8.0 today; s/p one unit this AM - significant blood loss during surg; 2 units intraop - trend hgb; serial cbcs - transfuse at <7 - f/u CT L leg #HTN -c/w ARB #Constipation - colace - miralax prn #HLD -c/w home statin #Hypothyroidism -c/w home synthroid #NIDDM - ISS - BGMs q4h FEN PO hydration Daily lytes sodium controlled diet PPX HSQ Plan discussed with attending, Dr. Yaz Ma, PGY1 Visit type - Emergency Visit Emergency Visit: Yes ED Registration Date: 07/31/17 Care time: The patient presented to the Emergency Department on the above date and was hospitalized for further evaluation of their emergent condition. - New Patient This patient is new to me today: No - Critical Care Critical Care patient: No - Discharge Referral Referred to [facility] Med [facility].: No
[2017-08-04 07:38] LABS: BASO % 0.2 % (0-2.0); EOS % 1.4 % (0-4.5); HEMATOCRIT 23.6 % (32.4-45.2); LYMPH % 10.3 % (8-40); MCH 27.7 pg (25.7-33.7); MCHC 34.1 g/dl (32.0-36.0); MEAN CELL VOLUME 81.4 fl (80-96); MEAN PLT VOLUME 11.1 fl (7.5-11.1); MONO % 9.5 % (3.8-10.2); NEUT % 78.6 % (42.8-82.8); PLATELET COUNT 89 K/MM3 (134-434); RDW 15.2 % (11.6-15.6); WHITE BLOOD COUNT 9.3 K/mm3 (4.0-10.0)
[2017-08-04 08:12] LABS: BLOOD UREA NITROGEN 16 mg/dL (7-18); CHLORIDE 101 mmol/L (98-107); POTASSIUM 3.6 mmol/L (3.5-5.1); SODIUM 137 mmol/L (136-145)
[2017-08-04 08:19] LABS: ANION GAP 10 (8-16); CALCIUM 7.3 mg/dL (8.5-10.1); CO2 26 mmol/L (21-32); CREATININE 0.4 mg/dL (0.55-1.02); GLUCOSE,RANDOM 145 mg/dL (74-106)
--- NOTE | 2017-08-04 09:12 | PN ---
Teaching Attending Note Name of Resident: Raffaele Ma ATTENDING PHYSICIAN STATEMENT I saw and evaluated the patient. I reviewed the resident's note and discussed the case with the resident. I agree with the resident's findings and plan as documented with exceptions below. SUBJECTIVE: Patient seen and examined. left thigh pain, still no BM, but passing gas, no abdominal pain, nausea, or vomiting noted. Has not been able to work with PT much. No new cough, chills, dyspnea noted. OBJECTIVE: Vital Signs Period Temp Pulse Resp BP Sys/Bull Pulse Ox Last 24 Hr 98 F-100.1 F 80-112 20-20 100-122/50-77 97 Intake & Output 08/01/17 08/02/17 08/03/17 08/04/17 23:59 23:59 23:59 23:59 Intake Total 2375 3650 2775 1500 Output Total 1400 2600 300 Balance 975 1050 2475 1500 General; lying in bed in no acute distress Chest: Good air entry bilaterally, no rales or wheezing Abdomen: soft, distended, NT throughout, positive bowel sounds Extremities: left thigh edema, positive Left DP Pulses, able to move left toes freely Home Medication List Medication Instructions Recorded Confirmed Type Alprazolam [Xanax] 0.25 mg PO HS 07/31/17 07/31/17 History Atorvastatin Ca [Lipitor] 10 mg PO HS 07/31/17 07/31/17 History Diclofenac Sodium [Diclofenac 100 mg PO DAILY PRN 07/31/17 07/31/17 History Sodium ER] Glimepiride 2 mg PO DAILY 07/31/17 07/31/17 History Levothyroxine [Synthroid -] 50 mcg PO DAILY 07/31/17 07/31/17 History Mag Hydrox/Aluminum Hyd/Simeth 1 each PO PRN PRN 07/31/17 07/31/17 History [Gelusil Tablet Chewable] Metformin HCl [Metformin HCl ER] 1,000 mg PO DAILY 07/31/17 07/31/17 History Nitroglycerin ER Capsule - 2.5 mg PO BID 07/31/17 07/31/17 History Pantoprazole Sodium [Protonix -] 40 mg PO DAILY 07/31/17 07/31/17 History Patient Specific Medications [Pt 10 mg PO DAILY 07/31/17 07/31/17 History Own Med Drawer -] Patient Specific Medications [Pt 20 mg PO DAILY 07/31/17 07/31/17 History Own Med Drawer -] Telmisartan [Micardis] 40 mg PO HS 07/31/17 07/31/17 History Metformin HCl 1,000 mg PO ACBK 08/01/17 08/01/17 History Active Medications Generic Name Dose Route Start Last Admin Trade Name Freq PRN Reason Stop Dose Admin Acetaminophen 650 mg 08/01/17 10:55 08/04/17 05:51 Tylenol - PO 650 mg Q6H PRN Administration PAIN LEVEL 1-5 Alprazolam 0.25 mg 08/01/17 22:00 08/03/17 21:21 Xanax - PO 0.25 mg HS MARY Administration Atorvastatin Calcium 10 mg 08/01/17 22:00 08/03/17 21:21 Lipitor - PO 10 mg HS MARY Administration Docusate Sodium 100 mg 08/02/17 13:50 08/03/17 21:21 Colace - PO 100 mg BID PRN Administration CONSTIPATION Guaifenesin 5 ml 08/04/17 07:01 Diabetic Tussin Dm - PO Q4H PRN COUGH Heparin Sodium (Porcine) 5,000 unit 08/01/17 14:00 08/04/17 05:49 Heparin - SQ 5,000 unit TID MARY Administration Insulin Aspart 1 vial 08/01/17 07:00 08/04/17 06:39 Novolog Vial Sliding Scale - SQ 2 units ACHS MARY Administration Protocol Levothyroxine Sodium 50 mcg 08/01/17 07:00 08/04/17 06:38 Synthroid - PO 50 mcg DAILY@0700 MARY Administration Losartan Potassium 25 mg 08/01/17 10:45 08/03/17 10:41 Cozaar - PO 25 mg DAILY MARY Administration Ondansetron HCl 4 mg 07/31/17 23:02 08/02/17 18:53 Zofran Injection IVPUSH 4 mg Q4H PRN Administration NAUSEA AND/OR VOMITING Ondansetron HCl 4 mg 08/02/17 15:14 Zofran Injection IVPUSH Q6H PRN NAUSEA AND/OR VOMITING Promethazine HCl 12.5 mg 08/02/17 15:14 Phenergan Injection - IVPUSH Q6H PRN NAUSEA-FOR RESCUE AFTER 15 MIN Tramadol HCl 50 mg 08/01/17 10:37 08/03/17 21:21 Ultram - PO 50 mg Q6H PRN Administration PAIN LEVEL 4 - 6 Laboratory Results - last 24 hr 08/02/17 08/03/17 08/03/17 16:29 12:06 12:50 WBC 9.6 RBC 3.26 L Hgb 9.0 L Hct 26.8 L MCV 82.2 MCH 27.7 MCHC 33.7 RDW 14.9 Plt Count 87 L MPV 11.2 H Neutrophils % 70.9 Lymphocytes % 15.3 Monocytes % 12.7 H Eosinophils % 0.7 D Basophils % 0.4 Sodium Potassium Chloride Carbon Dioxide Anion Gap BUN Creatinine POC Glucometer 138 229 Random Glucose Calcium 08/03/17 08/03/17 08/04/17 15:53 20:58 05:44 WBC RBC Hgb Hct MCV MCH MCHC RDW Plt Count MPV Neutrophils % Lymphocytes % Monocytes % Eosinophils % Basophils % Sodium Potassium Chloride Carbon Dioxide Anion Gap BUN Creatinine POC Glucometer 215 209 162 Random Glucose Calcium 08/04/17 08/04/17 06:30 06:30 WBC 9.3 RBC 2.90 L Hgb 8.0 L D Hct 23.6 L MCV 81.4 MCH 27.7 MCHC 34.1 RDW 15.2 Plt Count 89 L MPV 11.1 Neutrophils % 78.6 Lymphocytes % 10.3 D Monocytes % 9.5 Eosinophils % 1.4 D Basophils % 0.2 Sodium 137 Potassium 3.6 Chloride 101 Carbon Dioxide 26 Anion Gap 10 BUN 16 Creatinine 0.4 L POC Glucometer Random Glucose 145 H Calcium 7.3 L ASSESSMENT AND PLAN: 71yo F wtih PMH DM, HTn hypothyroid, and dyslipidemia and RBBB presented after tripping and falling on the sidewalk and found to have a L femoral fracture -Mechanical fall/Left femur fracture s/p intramedullary racquel 08/02 -Acute anemia, likely multifactorial from surgical blood loss and hemodilution from aggressive hydration s/p 2 u PRBC intra-op -RBBB, old vs new, evaluated by cardiology pre-operatively -Abdominal distension, improved -NIDDM -HTN -HLD -hypothyroidism -Anxiety Plan: Transfuse 1 unit pRBC, Monitor H.h. D/c IVF. CT LE to assess for bleeding. PT eval, [facility] when able and medically optimized. Pain control with tramadol/ tylenol. Aggressive bowel regimen, clinically soft abdomen with positive bowel sounds, passing gas and no nausea, vomiting. Not suggestive of ilues. Monitor closely. Incentive spirometry. Hold oral diabetic agents. ISS, diabetic diet. Losartan. Monitor BP statin Levothyroxine Xanax hs DVTPPX with heparin currently, continue per ortho given recurrent anemia and concerns for bleed. DIspo CM to work on disposition, [facility] if able Plan discussed with patient in detail, all questions answered.
[2017-08-04] MEDS ORDERED: INSULIN (NOVOLOG) ASPART 100 UNITS/ML 10ML VIAL ONE ×2 (10:26→15:37)
[2017-08-04] MEDS: LOSARTAN POTASSIUM 25 MG TABLET PO SCH (10:28)
[2017-08-04] MEDS: traMADol HCL 50 MG TABLET PO PRN (12:44)
[2017-08-04] MEDS: POLYETHYLENE GLYCOL 3350 119 GM BTL PO SCH (12:44)
--- NOTE | 2017-08-04 15:39 | PN ---
Progress Note (short form) - Note Progress Note: Pt seen and examined. Her pain is improving. She is progressing slowly with P.T. , nursing states she is not giving it as much effort as we would like. AVSSm but H/H low, decreased to 8.0/23.6 LLE looks good, no bleeding into the thigh LLE is NVI Good ROM at the left ankle, foot, toes Dressings are CDI, no drainage Imp Doing well s/p left long Gamma Nail Rec Getting transfused PRBC More P.T., OOB to chair as well Incentive spirometer DC/transfer planning
[2017-08-04 20:25] LABS: HEMATOCRIT 27.8 % (32.4-45.2); HEMOGLOBIN 9.5 GM/dL (10.7-15.3); MCH 28.2 pg (25.7-33.7); MEAN PLT VOLUME 10.9 fl (7.5-11.1); PLATELET COUNT 109 K/MM3 (134-434); RBC 3.35 M/mm3 (3.60-5.2); RDW 15.2 % (11.6-15.6); WHITE BLOOD COUNT 9.7 K/mm3 (4.0-10.0)
[2017-08-04] MEDS: ALPRAZolam 0.25 MG TABLET PO SCH (21:23)
[2017-08-04] MEDS: ATORVASTATIN CA 10 MG TABLET (FP) PO SCH (21:24)
[2017-08-05] MEDS ORDERED: INSULIN (NOVOLOG) ASPART 100 UNITS/ML 10ML VIAL ONE ×2 (06:01→21:31)
--- NOTE | 2017-08-05 06:18 | PN ---
Physical Exam: SUBJECTIVE: Patient seen and examined - No overnight events. Pt tachy to 110s yesterday evening. Received 1 unit prbcs , tolerated well with increase in hgb 8-> 9.5 - Pt denies GRIFFITH/lightheadness, CP, cough, sob, ab pain, back pain, LE edema, peripheral numbness or weakness; Pt complaining of surgical site pain in L hip; no BM post op, ordered for enema OBJECTIVE: Vital Signs Intake & Output 08/02/17 08/03/17 08/04/17 08/05/17 23:59 23:59 23:59 23:59 Intake Total 3650 2775 3125 Output Total 2600 300 1500 Balance 1050 2475 1625 Period Temp Pulse Resp BP Sys/Bull Pulse Ox Last 24 Hr 98.4 F-99.4 F 96-117 20-22 102-135/50-67 97-97 GENERAL: Elderly woman, NAD, laying in bed HEAD: NCAT EYES: Pupils equal, round and reactive to light, extraocular movements intact, sclera anicteric, conjunctiva clear. No lid lag. EARS, NOSE, THROAT: Poor dentition. Ears normal, nares patent, oropharynx clear without exudates. Moist mucous membranes. NECK: Normal range of motion, supple without lymphadenopathy, JVD, or masses. LUNGS: Slightly decreased breath sounds at bases. No wheezes, and no crackles. No accessory muscle use. HEART: Regular rate and rhythm, normal S1 and S2 without murmur, rub or gallop. ABDOMEN: Globular. Soft, nontender, normoactive bowel sounds, no guarding, no rebound, no masses. No hepatomegaly or splenomegaly. MUSCULOSKELETAL: Increased caliber and edema of L thigh and hip. Surgical site bandages with mild oozing. Normal range of motion at all joints. No bony deformities or tenderness. No CVA tenderness. UPPER EXTREMITIES: 2+ pulses, warm, well-perfused. No cyanosis. No clubbing. No peripheral edema. LOWER EXTREMITIES: 1+ DP/PT pulses appreciable in LEs. Preserved sensation to touch BL in LEs. NEUROLOGICAL: Cranial nerves grossly intact. 5/5 strength and preserved sensation in all extremities BL. PSYCHIATRIC: interactive, pleasant Laboratory Results - last 24 hr CBC, BMP 08/05/17 07:40 08/05/17 07:40 08/04/17 18:50 08/04/17 06:30 08/04/17 08/04/17 08/04/17 06:30 06:30 09:55 WBC 9.3 RBC 2.90 L Hgb 8.0 L D Hct 23.6 L MCV 81.4 MCH 27.7 MCHC 34.1 RDW 15.2 Plt Count 89 L MPV 11.1 Neutrophils % 78.6 Lymphocytes % 10.3 D Monocytes % 9.5 Eosinophils % 1.4 D Basophils % 0.2 Sodium 137 Potassium 3.6 Chloride 101 Carbon Dioxide 26 Anion Gap 10 BUN 16 Creatinine 0.4 L POC Glucometer Random Glucose 145 H Calcium 7.3 L Blood Type O POSITIVE Antibody Screen Negative Crossmatch See Detail 08/04/17 08/04/17 08/04/17 10:30 15:42 18:50 WBC 9.7 RBC 3.35 L Hgb 9.5 L D Hct 27.8 L D MCV 83.0 MCH 28.2 MCHC 34.0 RDW 15.2 Plt Count 109 L D MPV 10.9 Neutrophils % Lymphocytes % Monocytes % Eosinophils % Basophils % Sodium Potassium Chloride Carbon Dioxide Anion Gap BUN Creatinine POC Glucometer 144 227 Random Glucose Calcium Blood Type Antibody Screen Crossmatch 08/04/17 21:29 WBC RBC Hgb Hct MCV MCH MCHC RDW Plt Count MPV Neutrophils % Lymphocytes % Monocytes % Eosinophils % Basophils % Sodium Potassium Chloride Carbon Dioxide Anion Gap BUN Creatinine POC Glucometer 214 Random Glucose Calcium Blood Type Antibody Screen Crossmatch Active Medications Generic Name Dose Route Start Last Admin Trade Name Freq PRN Reason Stop Dose Admin Acetaminophen 650 mg 08/01/17 10:55 08/04/17 21:23 Tylenol - PO 650 mg Q6H PRN Administration PAIN LEVEL 1-5 Alprazolam 0.25 mg 08/01/17 22:00 08/04/17 21:23 Xanax - PO 0.25 mg HS MARY Administration Atorvastatin Calcium 10 mg 08/01/17 22:00 08/04/17 21:24 Lipitor - PO 10 mg HS MARY Administration Docusate Sodium 100 mg 08/02/17 13:50 08/03/17 21:21 Colace - PO 100 mg BID PRN Administration CONSTIPATION Guaifenesin 5 ml 08/04/17 07:01 Diabetic Tussin Dm - PO Q4H PRN COUGH Heparin Sodium (Porcine) 5,000 unit 08/01/17 14:00 08/04/17 21:24 Heparin - SQ 5,000 unit TID MARY Administration Insulin Aspart 1 vial 08/01/17 07:00 08/04/17 15:43 Novolog Vial Sliding Scale - SQ 4 units ACHS MARY Administration Protocol Levothyroxine Sodium 50 mcg 08/01/17 07:00 08/04/17 06:38 Synthroid - PO 50 mcg DAILY@0700 MARY Administration Losartan Potassium 25 mg 08/01/17 10:45 08/04/17 10:28 Cozaar - PO 25 mg DAILY MARY Administration Ondansetron HCl 4 mg 07/31/17 23:02 08/02/17 18:53 Zofran Injection IVPUSH 4 mg Q4H PRN Administration NAUSEA AND/OR VOMITING Ondansetron HCl 4 mg 08/02/17 15:14 Zofran Injection IVPUSH Q6H PRN NAUSEA AND/OR VOMITING Polyethylene Glycol 17 gm 08/04/17 12:30 08/04/17 12:44 Miralax (For Daily Use) - PO 17 gm DAILY MARY Administration Promethazine HCl 12.5 mg 08/02/17 15:14 Phenergan Injection - IVPUSH Q6H PRN NAUSEA-FOR RESCUE AFTER 15 MIN Tramadol HCl 50 mg 08/01/17 10:37 08/04/17 12:44 Ultram - PO 50 mg Q6H PRN Administration PAIN LEVEL 4 - 6 No micro CXR 07/31 - prominent mediastinum; no acute pathology Hip/femur XR 07/31 - Comminuted fx of the proximal femur noted. Abdominal XR 08/01 - abdominal distension compatible with ileus. Left femoral fx. CT L leg 08/04- Impression: Status post op and placement of metallic hardware from femoral shaft fracture. There is significant soft tissue swelling in the proximal and mid thigh with soft tissue air. Focal ill-defined area of heterogeneous density seen just lateral and superior to the left hip measuring 5 x 2.5 cm suggestive of a hematoma. There is also fluid seen along lateral aspect of the entire left thigh with air pockets consistent with postop changes/ collection. Cannot rule out a hematoma. Significant subcutaneous edema/ stranding is present along entire lateral and posterior aspect of the left thigh. No gross vascular extravasation of contrast is identified. ASSESSMENT/PLAN: Pt is 71 yo F with pmh of NIDDM, HTN, HLD, hypothyroidism who presents from [place] s/p a mechanical fall this AM. Now with imaging confirmed L femur fx. Surgical correction on 08/[address] Shields, POD3, doing well, Hgb stable. CT of L leg with above noted hematoma. Attempted to contact primary surgical team. #L femur fx - comminuted proximal L femur fx on XR; POD3; CT of L leg notable for hematoma - Ortho following - plan for d/c once hemo stable, plan for hematoma and dvt ppx established - PWB, OOB - Pain control with PO tylenol - phenergan, zofran for N/V - d/c to [facility] once bed available and pt stable - neuro/vascular checks Qshift - ultram for muscle spasms - PO hydration - interval thigh circumferences - PT eval - repeat H/H if still bleeding from surgical bandages #anemia -9.7 today, stable post 1 unit yesterday AM - significant blood loss during surg; 2 units intraop - trend hgb; serial cbcs - transfuse at <7 - CT L leg as noted above; attempted to notify primary surgical team regarding clarification of DVT ppx #HTN -c/w ARB #Constipation - colace - miralax prn - Dulcolax NE x1 today #HLD -c/w home statin #Hypothyroidism -c/w home synthroid #NIDDM - ISS - BGMs q4h FEN PO hydration Daily lytes sodium controlled diet PPX HSQ for now; will confirm with ortho team Plan discussed with attending, Dr. Jackie Ma, PGY1 Visit type - Emergency Visit Emergency Visit: Yes ED Registration Date: 07/31/17 Care time: The patient presented to the Emergency Department on the above date and was hospitalized for further evaluation of their emergent condition. - New Patient This patient is new to me today: No - Critical Care Critical Care patient: No - Discharge Referral Referred to [facility] No
[2017-08-05] MEDS: HEPARIN NA (PORCINE) 5,000 UNITS/ML 1ML VIAL SQ SCH ×2 (06:39→13:56)
[2017-08-05] MEDS: LEVOTHYROXINE NA 50 MCG TABLET (FP) PO SCH (06:39)
[2017-08-05] MEDS: INSULIN SLIDING SCALE (NOVOLOG) 1 VIAL SQ SCH ×4 (06:40→21:55)
[2017-08-05 08:19] LABS: BASO % 0.1 % (0-2.0); EOS % 0.9 % (0-4.5); HEMATOCRIT 28.9 % (32.4-45.2); HEMOGLOBIN 9.7 GM/dL (10.7-15.3); LYMPH % 10.8 % (8-40); MCH 27.7 pg (25.7-33.7); MCHC 33.4 g/dl (32.0-36.0); MEAN CELL VOLUME 82.8 fl (80-96); MEAN PLT VOLUME 10.5 fl (7.5-11.1); MONO % 7.7 % (3.8-10.2); NEUT % 80.5 % (42.8-82.8); PLATELET COUNT 125 K/MM3 (134-434); RBC 3.49 M/mm3 (3.60-5.2); RDW 15.4 % (11.6-15.6); WHITE BLOOD COUNT 9.6 K/mm3 (4.0-10.0)
[2017-08-05 08:27] LABS: CHLORIDE 103 mmol/L (98-107); POTASSIUM 3.7 mmol/L (3.5-5.1); SODIUM 139 mmol/L (136-145)
[2017-08-05 08:32] LABS: ANION GAP 6 (8-16); BLOOD UREA NITROGEN 9 mg/dL (7-18); CALCIUM 7.3 mg/dL (8.5-10.1); CO2 30 mmol/L (21-32); CREATININE 0.5 mg/dL (0.55-1.02); GLUCOSE,RANDOM 148 mg/dL (74-106)
[2017-08-05] MEDS: LOSARTAN POTASSIUM 25 MG TABLET PO SCH (09:08)
[2017-08-05] MEDS: POLYETHYLENE GLYCOL 3350 119 GM BTL PO SCH (09:08)
[2017-08-05] MEDS: DOCUSATE SODIUM 100 MG CAPSULE (FP) PO PRN ×2 (09:12→21:54)
[2017-08-05] MEDS: traMADol HCL 50 MG TABLET PO PRN (09:12)
--- NOTE | 2017-08-05 11:25 | PN ---
Progress Note (short form) - Note Progress Note: Ortho Pt seen and examined s/p left IM gamma nail Selected Entries 08/05/17 08:58 Temperature 99.0 F Pulse Rate 100 H Respiratory 20 Rate Blood Pressure 130/68 Laboratory Tests 08/05/17 07:40 WBC 9.6 Hgb 9.7 L Hct 28.9 L Plt Count 125 L dressing some saturation but not to borders, calf soft, nt nvi a/p PT PWB oob dvt ppx pain control d/c planning
[2017-08-05] MEDS ORDERED: BISACODYL 10 MG SUPP.RECT RC PRN (11:28)
--- NOTE | 2017-08-05 15:07 | PN ---
Teaching Attending Note Name of Resident: Raffaele Ma ATTENDING PHYSICIAN STATEMENT I saw and evaluated the patient. I reviewed the resident's note and discussed the case with the resident. I agree with the resident's findings and plan as documented with exceptions below. SUBJECTIVE: Patient seen and examined. left thigh pain, no dizziness, chest pain, palpitations, or dyspnea. OBJECTIVE: Vital Signs Period Temp Pulse Resp BP Sys/Bull Pulse Ox Last 24 Hr 98.3 F-99.0 F 96-117 20-20 102-135/63-68 97 Intake & Output 08/02/17 08/03/17 08/04/17 08/05/17 23:59 23:59 23:59 23:59 Intake Total 3650 2775 3125 450 Output Total 2600 300 1500 500 Balance 1050 2475 1625 -50 General: sitting in bed in no acute distress Extremities: left thigh swelling with mild bloody discharge over the tape, positive DP pulses LLE, tenderness over thigh area Home Medication List Medication Instructions Recorded Confirmed Type Alprazolam [Xanax] 0.25 mg PO HS 07/31/17 07/31/17 History Atorvastatin Ca [Lipitor] 10 mg PO HS 07/31/17 07/31/17 History Diclofenac Sodium [Diclofenac 100 mg PO DAILY PRN 07/31/17 07/31/17 History Sodium ER] Glimepiride 2 mg PO DAILY 07/31/17 07/31/17 History Levothyroxine [Synthroid -] 50 mcg PO DAILY 07/31/17 07/31/17 History Mag Hydrox/Aluminum Hyd/Simeth 1 each PO PRN PRN 07/31/17 07/31/17 History [Gelusil Tablet Chewable] Metformin HCl [Metformin HCl ER] 1,000 mg PO DAILY 07/31/17 07/31/17 History Nitroglycerin ER Capsule - 2.5 mg PO BID 07/31/17 07/31/17 History Pantoprazole Sodium [Protonix -] 40 mg PO DAILY 07/31/17 07/31/17 History Patient Specific Medications [Pt 10 mg PO DAILY 07/31/17 07/31/17 History Own Med Drawer -] Patient Specific Medications [Pt 20 mg PO DAILY 07/31/17 07/31/17 History Own Med Drawer -] Telmisartan [Micardis] 40 mg PO HS 07/31/17 07/31/17 History Metformin HCl 1,000 mg PO ACBK 08/01/17 08/01/17 History Active Medications Generic Name Dose Route Start Last Admin Trade Name Freq PRN Reason Stop Dose Admin Acetaminophen 650 mg 08/01/17 10:55 08/04/17 21:23 Tylenol - PO 650 mg Q6H PRN Administration PAIN LEVEL 1-5 Alprazolam 0.25 mg 08/01/17 22:00 08/04/17 21:23 Xanax - PO 0.25 mg HS MARY Administration Atorvastatin Calcium 10 mg 08/01/17 22:00 08/04/17 21:24 Lipitor - PO 10 mg HS MARY Administration Bisacodyl 10 mg 08/05/17 11:28 Dulcolax Suppository - RC DAILY PRN CONSTIPATION Docusate Sodium 100 mg 08/02/17 13:50 08/05/17 09:12 Colace - PO 100 mg BID PRN Administration CONSTIPATION Guaifenesin 5 ml 08/04/17 07:01 Diabetic Tussin Dm - PO Q4H PRN COUGH Heparin Sodium (Porcine) 5,000 unit 08/01/17 14:00 08/05/17 13:56 Heparin - SQ 5,000 unit TID MARY Administration Insulin Aspart 1 vial 08/01/17 07:00 08/05/17 11:25 Novolog Vial Sliding Scale - SQ 4 units ACHS MARY Administration Protocol Levothyroxine Sodium 50 mcg 08/01/17 07:00 08/05/17 06:39 Synthroid - PO 50 mcg DAILY@0700 MARY Administration Losartan Potassium 25 mg 08/01/17 10:45 08/05/17 09:08 Cozaar - PO 25 mg DAILY MARY Administration Ondansetron HCl 4 mg 07/31/17 23:02 08/02/17 18:53 Zofran Injection IVPUSH 4 mg Q4H PRN Administration NAUSEA AND/OR VOMITING Ondansetron HCl 4 mg 08/02/17 15:14 Zofran Injection IVPUSH Q6H PRN NAUSEA AND/OR VOMITING Polyethylene Glycol 17 gm 08/04/17 12:30 08/05/17 09:08 Miralax (For Daily Use) - PO 17 gm DAILY MARY Administration Promethazine HCl 12.5 mg 08/02/17 15:14 Phenergan Injection - IVPUSH Q6H PRN NAUSEA-FOR RESCUE AFTER 15 MIN Laboratory Results - last 24 hr 08/01/17 08/04/17 08/04/17 06:55 15:42 18:50 WBC 9.7 RBC 3.35 L Hgb 9.5 L D Hct 27.8 L D MCV 83.0 MCH 28.2 MCHC 34.0 RDW 15.2 Plt Count 109 L D MPV 10.9 Neutrophils % Lymphocytes % Monocytes % Eosinophils % Basophils % Sodium Potassium Chloride Carbon Dioxide Anion Gap BUN Creatinine POC Glucometer 227 Random Glucose Calcium Blood Type O POSITIVE Antibody Screen Negative Crossmatch IS Only See Detail 08/04/17 08/05/17 08/05/17 21:29 06:38 07:40 WBC 9.6 RBC 3.49 L Hgb 9.7 L Hct 28.9 L MCV 82.8 MCH 27.7 MCHC 33.4 RDW 15.4 Plt Count 125 L MPV 10.5 Neutrophils % 80.5 Lymphocytes % 10.8 Monocytes % 7.7 Eosinophils % 0.9 Basophils % 0.1 Sodium Potassium Chloride Carbon Dioxide Anion Gap BUN Creatinine POC Glucometer 214 154 Random Glucose Calcium Blood Type Antibody Screen Crossmatch IS Only 08/05/17 08/05/17 07:40 11:17 WBC RBC Hgb Hct MCV MCH MCHC RDW Plt Count MPV Neutrophils % Lymphocytes % Monocytes % Eosinophils % Basophils % Sodium 139 Potassium 3.7 Chloride 103 Carbon Dioxide 30 Anion Gap 6 L BUN 9 Creatinine 0.5 L POC Glucometer 215 Random Glucose 148 H Calcium 7.3 L Blood Type Antibody Screen Crossmatch IS Only ASSESSMENT AND PLAN: 71yo F wtih PMH DM, HTn hypothyroid, and dyslipidemia and RBBB presented after tripping and falling on the sidewalk and found to have a L femoral fracture -Mechanical fall/Left femur fracture s/p intramedullary racquel 08/02 -Acute blood loss anemia from intra-op blood loss now with LLE hematoma/mild oozing from the site s/p 3 units PRBC -RBBB, old vs new, evaluated by cardiology pre-operatively -Abdominal distension, improved -NIDDM -HTN -HLD -hypothyroidism -Anxiety Plan: h/h stable. CT LE noted. Follow up with orthopedic. Monitor h/h. Continue DVTPPX per ortho recs. PT eval, LEÓN when able and medically optimized. Pain control with tramadol/ tylenol. Aggressive bowel regimen, clinically soft abdomen with positive bowel sounds, passing gas and no nausea, vomiting. Not suggestive of ilues. Trial with dulcolax supp/enema prn. Encourage OOB. Incentive spirometry. Hold oral diabetic agents. ISS, diabetic diet. Losartan. Monitor BP statin Levothyroxine Xanax hs DVTPPX with heparin currently, continue per ortho given recurrent anemia and concerns for bleed. DIspo CM to work on disposition, LEÓN if able Plan discussed with patient in detail, all questions answered
[2017-08-05] MEDS: ATORVASTATIN CA 10 MG TABLET (FP) PO SCH (21:53)
[2017-08-05] MEDS: ACETAMINOPHEN 325 MG TABLET (FP) PO PRN (21:53)
[2017-08-05] MEDS: ALPRAZolam 0.25 MG TABLET PO SCH (21:53)
[2017-08-06] MEDS: LEVOTHYROXINE NA 50 MCG TABLET (FP) PO SCH (06:27)
[2017-08-06] MEDS: INSULIN SLIDING SCALE (NOVOLOG) 1 VIAL SQ SCH ×4 (06:28→21:34)
--- NOTE | 2017-08-06 07:23 | PN ---
Physical Exam: SUBJECTIVE: Patient seen and examined - No major overnight events; ambulated with PT yesterday, tolerating activity well; awaiting placement; still no BM; denies f/c/n/v/d, GRIFFITH, CP, cough, sob, ab pain, back pain, LE edema OBJECTIVE: Vital Signs Intake & Output 08/03/17 08/04/17 08/05/17 08/06/17 23:59 23:59 23:59 23:59 Intake Total 2775 3125 750 Output Total 300 1500 900 Balance 2475 1625 -150 Period Temp Pulse Resp BP Sys/Bull Pulse Ox Last 24 Hr 98.2 F-99.9 F 94-107 20-20 108-130/61-68 96 GENERAL: Elderly woman, NAD HEAD: NCAT EYES: Pupils equal, round and reactive to light, extraocular movements intact, sclera anicteric, conjunctiva clear. No lid lag. EARS, NOSE, THROAT: Poor dentition. Ears normal, nares patent, oropharynx clear without exudates. Moist mucous membranes. NECK: Normal range of motion, supple without lymphadenopathy, JVD, or masses. LUNGS: CTABL. No wheezes, and no crackles. No accessory muscle use. HEART: Regular rate and rhythm, normal S1 and S2 without murmur, rub or gallop. ABDOMEN: Globular. Soft, nontender, normoactive bowel sounds, no guarding, no rebound, no masses. No hepatomegaly or splenomegaly. MUSCULOSKELETAL: Surgical site bandages with dried blood, no erythema or purulence. Mildly TTP. Normal range of motion at all joints. No bony deformities or tenderness. No CVA tenderness. UPPER EXTREMITIES: 2+ pulses, warm, well-perfused. No cyanosis. No clubbing. No peripheral edema. LOWER EXTREMITIES: 1+ DP/PT pulses appreciable in LEs. Preserved sensation to touch BL in LEs. NEUROLOGICAL: Cranial nerves grossly intact. 5/5 strength and preserved sensation in all extremities BL. Laboratory Results - last 24 hr CBC, BMP 08/06/17 07:00 08/05/17 07:40 08/05/17 07:40 08/01/17 08/05/17 08/05/17 06:55 07:40 07:40 WBC 9.6 RBC 3.49 L Hgb 9.7 L Hct 28.9 L MCV 82.8 MCH 27.7 MCHC 33.4 RDW 15.4 Plt Count 125 L MPV 10.5 Neutrophils % 80.5 Lymphocytes % 10.8 Monocytes % 7.7 Eosinophils % 0.9 Basophils % 0.1 Sodium 139 Potassium 3.7 Chloride 103 Carbon Dioxide 30 Anion Gap 6 L BUN 9 Creatinine 0.5 L POC Glucometer Random Glucose 148 H Calcium 7.3 L Blood Type O POSITIVE Antibody Screen Negative Crossmatch IS Only See Detail 08/05/17 08/05/17 08/05/17 11:17 16:31 21:53 WBC RBC Hgb Hct MCV MCH MCHC RDW Plt Count MPV Neutrophils % Lymphocytes % Monocytes % Eosinophils % Basophils % Sodium Potassium Chloride Carbon Dioxide Anion Gap BUN Creatinine POC Glucometer 215 304 149 Random Glucose Calcium Blood Type Antibody Screen Crossmatch IS Only 08/06/17 06:18 WBC RBC Hgb Hct MCV MCH MCHC RDW Plt Count MPV Neutrophils % Lymphocytes % Monocytes % Eosinophils % Basophils % Sodium Potassium Chloride Carbon Dioxide Anion Gap BUN Creatinine POC Glucometer 154 Random Glucose Calcium Blood Type Antibody Screen Crossmatch IS Only Active Medications Generic Name Dose Route Start Last Admin Trade Name Freq PRN Reason Stop Dose Admin Acetaminophen 650 mg 08/01/17 10:55 08/05/17 21:53 Tylenol - PO 650 mg Q6H PRN Administration PAIN LEVEL 1-5 Alprazolam 0.25 mg 08/01/17 22:00 08/05/17 21:53 Xanax - PO 0.25 mg HS MARY Administration Atorvastatin Calcium 10 mg 08/01/17 22:00 08/05/17 21:53 Lipitor - PO 10 mg HS MARY Administration Bisacodyl 10 mg 08/05/17 11:28 Dulcolax Suppository - RC DAILY PRN CONSTIPATION Docusate Sodium 100 mg 08/02/17 13:50 08/05/17 21:54 Colace - PO 100 mg BID PRN Administration CONSTIPATION Enoxaparin Sodium 40 mg 08/06/17 10:00 Lovenox - SQ DAILY MARY Guaifenesin 5 ml 08/04/17 07:01 Diabetic Tussin Dm - PO Q4H PRN COUGH Insulin Aspart 1 vial 08/01/17 07:00 08/06/17 06:28 Novolog Vial Sliding Scale - SQ 2 units ACHS MARY Administration Protocol Levothyroxine Sodium 50 mcg 08/01/17 07:00 04/26/18 06:27 Synthroid - PO 50 mcg DAILY@0700 MARY Administration Losartan Potassium 25 mg 08/01/17 10:45 08/05/17 09:08 Cozaar - PO 25 mg DAILY MARY Administration Ondansetron HCl 4 mg 07/31/17 23:02 08/02/17 18:53 Zofran Injection IVPUSH 4 mg Q4H PRN Administration NAUSEA AND/OR VOMITING Ondansetron HCl 4 mg 08/02/17 15:14 Zofran Injection IVPUSH Q6H PRN NAUSEA AND/OR VOMITING Polyethylene Glycol 17 gm 08/04/17 12:30 08/05/17 09:08 Miralax (For Daily Use) - PO 17 gm DAILY MARY Administration Promethazine HCl 12.5 mg 08/02/17 15:14 Phenergan Injection - IVPUSH Q6H PRN NAUSEA-FOR RESCUE AFTER 15 MIN No micro CXR 07/31 - prominent mediastinum; no acute pathology Hip/femur XR 07/31 - Comminuted fx of the proximal femur noted. Abdominal XR 08/01 - abdominal distension compatible with ileus. Left femoral fx. CT L leg 08/04- Impression: Status post op and placement of metallic hardware from femoral shaft fracture. There is significant soft tissue swelling in the proximal and mid thigh with soft tissue air. Focal ill-defined area of heterogeneous density seen just lateral and superior to the left hip measuring 5 x 2.5 cm suggestive of a hematoma. There is also fluid seen along lateral aspect of the entire left thigh with air pockets consistent with postop changes/ collection. Cannot rule out a hematoma. Significant subcutaneous edema/ stranding is present along entire lateral and posterior aspect of the left thigh. No gross vascular extravasation of contrast is identified. ASSESSMENT/PLAN: Pt is 71 yo F with pmh of NIDDM, HTN, HLD, hypothyroidism who presents from [facility] s/p a mechanical fall this AM. Now with imaging confirmed L femur fx. Surgical correction on 08/[address] Shields, POD4, doing well, Hgb stable. D/c planning however insurance will not cover LEÓN. #L femur fx - comminuted proximal L femur fx on XR; CT of L leg notable for hematoma - Ortho following - plan for d/c once hemo stable, plan for hematoma and dvt ppx established - PWB, OOB - Pain control with PO tylenol - phenergan, zofran for N/V - d/c to LE[facility]N once bed available and pt stable - neuro/vascular checks Qshift - ultram for muscle spasms - PO hydration - interval thigh circumferences - PT eval - repeat H/H if still bleeding from surgical bandages - ISS #anemia -9.5 today; s/p 1 unit prbcs - significant blood loss during surg; 2 units intraop - trend hgb; serial cbcs - transfuse at <7 - CT L leg as noted above; attempted to notify primary surgical team regarding clarification of DVT ppx #HTN -c/w ARB #Constipation - colace - miralax prn - Dulcolax PRN #HLD -c/w home statin #Hypothyroidism -c/w home synthroid #NIDDM - hold home oral diabetic agents; diabetic diet - ISS - BGMs q4h FEN PO hydration Daily lytes sodium controlled diet PPX Lovenox Plan discussed with attending, Dr. Jackie Ma, PGY1 Visit type - Emergency Visit Emergency Visit: Yes ED Registration Date: 07/31/17 Care time: The patient presented to the Emergency Department on the above date and was hospitalized for further evaluation of their emergent condition. - New Patient This patient is new to me today: No - Critical Care Critical Care patient: No - Discharge Referral Referred to [facility] Med [facility] No
--- NOTE | 2017-08-06 08:26 | PN ---
Teaching Attending Note Name of Resident: Raffaele Ma ATTENDING PHYSICIAN STATEMENT I saw and evaluated the patient. I reviewed the resident's note and discussed the case with the resident. I agree with the resident's findings and plan as documented with exceptions below. SUBJECTIVE: Patient seen and examined. left thigh/hip pain better, no new complaints. OBJECTIVE: Vital Signs Period Temp Pulse Resp BP Sys/Bull Pulse Ox Last 24 Hr 98.2 F-99.9 F 94-107 20-20 108-130/61-68 96 Intake & Output 08/03/17 08/04/17 08/05/17 08/06/17 23:59 23:59 23:59 23:59 Intake Total 2775 3125 750 Output Total 300 1500 900 Balance 2475 1625 -150 General: sitting in bed having lunch, no acute distress Abdomen: soft, obese, NT Extremities: left thigh swelling overall same, no more bloody drainage on the dressing, positive DP pulses Home Medication List Medication Instructions Recorded Confirmed Type Alprazolam [Xanax] 0.25 mg PO HS 07/31/17 07/31/17 History Atorvastatin Ca [Lipitor] 10 mg PO HS 07/31/17 07/31/17 History Diclofenac Sodium [Diclofenac 100 mg PO DAILY PRN 07/31/17 07/31/17 History Sodium ER] Glimepiride 2 mg PO DAILY 07/31/17 07/31/17 History Levothyroxine [Synthroid -] 50 mcg PO DAILY 07/31/17 07/31/17 History Mag Hydrox/Aluminum Hyd/Simeth 1 each PO PRN PRN 07/31/17 07/31/17 History [Gelusil Tablet Chewable] Metformin HCl [Metformin HCl ER] 1,000 mg PO DAILY 07/31/17 07/31/17 History Nitroglycerin ER Capsule - 2.5 mg PO BID 07/31/17 07/31/17 History Pantoprazole Sodium [Protonix -] 40 mg PO DAILY 07/31/17 07/31/17 History Patient Specific Medications [Pt 10 mg PO DAILY 07/31/17 07/31/17 History Own Med Drawer -] Patient Specific Medications [Pt 20 mg PO DAILY 07/31/17 07/31/17 History Own Med Drawer -] Telmisartan [Micardis] 40 mg PO HS 07/31/17 07/31/17 History Metformin HCl 1,000 mg PO ACBK 08/01/17 08/01/17 History Active Medications Generic Name Dose Route Start Last Admin Trade Name Freq PRN Reason Stop Dose Admin Acetaminophen 650 mg 08/01/17 10:55 08/05/17 21:53 Tylenol - PO 650 mg Q6H PRN Administration PAIN LEVEL 1-5 Alprazolam 0.25 mg 08/01/17 22:00 08/05/17 21:53 Xanax - PO 0.25 mg HS MARY Administration Atorvastatin Calcium 10 mg 08/01/17 22:00 08/05/17 21:53 Lipitor - PO 10 mg HS MARY Administration Bisacodyl 10 mg 08/05/17 11:28 Dulcolax Suppository - RC DAILY PRN CONSTIPATION Docusate Sodium 100 mg 08/02/17 13:50 08/05/17 21:54 Colace - PO 100 mg BID PRN Administration CONSTIPATION Enoxaparin Sodium 40 mg 08/06/17 10:00 Lovenox - SQ DAILY MARY Guaifenesin 5 ml 08/04/17 07:01 Diabetic Tussin Dm - PO Q4H PRN COUGH Insulin Aspart 1 vial 08/01/17 07:00 08/06/17 06:28 Novolog Vial Sliding Scale - SQ 2 units ACHS MARY Administration Protocol Levothyroxine Sodium 50 mcg 08/01/17 07:00 08/06/17 06:27 Synthroid - PO 50 mcg DAILY@0700 MARY Administration Losartan Potassium 25 mg 08/01/17 10:45 08/05/17 09:08 Cozaar - PO 25 mg DAILY MARY Administration Ondansetron HCl 4 mg 07/31/17 23:02 08/02/17 18:53 Zofran Injection IVPUSH 4 mg Q4H PRN Administration NAUSEA AND/OR VOMITING Ondansetron HCl 4 mg 08/02/17 15:14 Zofran Injection IVPUSH Q6H PRN NAUSEA AND/OR VOMITING Polyethylene Glycol 17 gm 08/04/17 12:30 08/05/17 09:08 Miralax (For Daily Use) - PO 17 gm DAILY MARY Administration Promethazine HCl 12.5 mg 08/02/17 15:14 Phenergan Injection - IVPUSH Q6H PRN NAUSEA-FOR RESCUE AFTER 15 MIN ASSESSMENT AND PLAN: 71yo F wtih PMH DM, HTn hypothyroid, and dyslipidemia and RBBB presented after tripping and falling on the sidewalk and found to have a L femoral fracture -Mechanical fall/Left femur fracture s/p intramedullary racquel 08/02 -Acute blood loss anemia from intra-op blood loss now with LLE hematoma/mild oozing from the site s/p 3 units PRBC -RBBB, old vs new, evaluated by cardiology pre-operatively -Abdominal distension, improved -NIDDM -HTN -HLD -hypothyroidism -Anxiety Plan: h/h stable. CT LE noted. Orthopedic input noted. Lovenox for DVTPPx PT eval, LEÓN if able and medically optimized. Pain control with tramadol/ tylenol. Aggressive bowel regimen, clinically soft abdomen with positive bowel sounds, passing gas and no nausea, vomiting. Not suggestive of ilues. Trial with dulcolax supp/enema prn. Encourage OOB. Incentive spirometry. Hold oral diabetic agents. ISS, diabetic diet. Losartan. Monitor BP statin Levothyroxine Xanax hs DVTPPX per orthopedic. DIspo CM input noted. NO LEÓN benefits, will continue to follow for disposition and work with PT to co-ordinate discharge with family. Plan discussed with patient in detail, all questions answered
[2017-08-06 08:31] LABS: BASO % 0.1 % (0-2.0); EOS % 1.6 % (0-4.5); HEMATOCRIT 28.7 % (32.4-45.2); HEMOGLOBIN 9.5 GM/dL (10.7-15.3); LYMPH % 11.1 % (8-40); MCH 27.9 pg (25.7-33.7); MCHC 33.1 g/dl (32.0-36.0); MEAN CELL VOLUME 84.1 fl (80-96); MONO % 7.6 % (3.8-10.2); NEUT % 79.6 % (42.8-82.8); PLATELET COUNT 153 K/MM3 (134-434); RBC 3.41 M/mm3 (3.60-5.2); RDW 15.6 % (11.6-15.6); WHITE BLOOD COUNT 8.9 K/mm3 (4.0-10.0)
[2017-08-06 09:01] LABS: ANION GAP 8 (8-16); BLOOD UREA NITROGEN 11 mg/dL (7-18); CALCIUM 7.7 mg/dL (8.5-10.1); CHLORIDE 100 mmol/L (98-107); CO2 30 mmol/L (21-32); CREATININE 0.6 mg/dL (0.55-1.02); GLUCOSE,RANDOM 141 mg/dL (74-106); POTASSIUM 3.9 mmol/L (3.5-5.1); SODIUM 138 mmol/L (136-145)
[2017-08-06] MEDS: ENOXAPARIN NA (PORCINE) 40 MG/0.4 ML DISP.SYRIN SQ SCH (09:14)
[2017-08-06] MEDS: LOSARTAN POTASSIUM 25 MG TABLET PO SCH (09:14)
[2017-08-06] MEDS: POLYETHYLENE GLYCOL 3350 119 GM BTL PO SCH (09:15)
--- NOTE | 2017-08-06 09:17 | PN ---
Progress Note (short form) - Note Progress Note: Ortho Pt seen and examined s/p left IM gamma nail Selected Entries 08/06/17 08:40 Temperature 97.8 F Pulse Rate 101 H Respiratory 20 Rate Blood Pressure 119/71 Laboratory Tests 08/06/17 07:00 WBC 8.9 Hgb 9.5 L Hct 28.7 L Plt Count 153 D incision c/d/i, zack intact, calf soft, nt nvi a/p Dressing removed- can leave open to air PT PWB oob dvt ppx pain control d/c planning
[2017-08-06] MEDS: ACETAMINOPHEN 325 MG TABLET (FP) PO PRN ×2 (14:55→21:34)
[2017-08-06] MEDS ORDERED: INSULIN (NOVOLOG) ASPART 100 UNITS/ML 10ML VIAL ONE (17:18)
[2017-08-06] MEDS: ATORVASTATIN CA 10 MG TABLET (FP) PO SCH (21:34)
[2017-08-06] MEDS: ALPRAZolam 0.25 MG TABLET PO SCH (21:34)
[2017-08-07] MEDS ORDERED: INSULIN (NOVOLOG) ASPART 100 UNITS/ML 10ML VIAL ONE ×3 (05:54→22:09)
[2017-08-07] MEDS: INSULIN SLIDING SCALE (NOVOLOG) 1 VIAL SQ SCH ×4 (06:15→22:15)
[2017-08-07] MEDS: LEVOTHYROXINE NA 50 MCG TABLET (FP) PO SCH (06:15)
--- NOTE | 2017-08-07 07:30 | PN ---
Physical Exam: SUBJECTIVE: Patient seen and examined by me this AM - No major overnight events; VSS, afebrile; Still complaining of pain in L leg when walking with PT; Pt with one large BM overnight; tolerating PO feeds; Denies f/c/n/v/d, GRIFFITH, CP, N/V, ab pain, back pain, LE edema, FNDs OBJECTIVE: Vital Signs Intake & Output 08/04/17 08/05/17 08/06/17 08/07/17 23:59 23:59 23:59 23:59 Intake Total 3125 750 670 Output Total 8097 640 7096 Balance 1625 -150 -1330 Period Temp Pulse Resp BP Sys/Bull Pulse Ox Last 24 Hr 97.8 F-99.5 F 87-107 16-22 103-119/53-71 96-96 GENERAL: Elderly woman, NAD HEAD: NCAT EYES: Pupils equal, round and reactive to light, extraocular movements intact, sclera anicteric, conjunctiva clear. No lid lag. EARS, NOSE, THROAT: Poor dentition. Ears normal, nares patent, oropharynx clear without exudates. Moist mucous membranes. NECK: Normal range of motion, supple without lymphadenopathy, JVD, or masses. LUNGS: CTABL. No wheezes, and no crackles. No accessory muscle use. HEART: Regular rate and rhythm, normal S1 and S2 without murmur, rub or gallop. ABDOMEN: Globular. Soft, nontender, normoactive bowel sounds, no guarding, no rebound, no masses. No hepatomegaly or splenomegaly. MUSCULOSKELETAL: Surgical incision site with no erythema or purulence. Tender with active and passive movement. Normal range of motion at all joints. No bony deformities or tenderness. No CVA tenderness. UPPER EXTREMITIES: 2+ pulses, warm, well-perfused. No cyanosis. No clubbing. No peripheral edema. LOWER EXTREMITIES: 1+ DP/PT pulses appreciable in LEs. Preserved sensation to touch BL in LEs. NEUROLOGICAL: Cranial nerves grossly intact. 5/5 strength and preserved sensation in all extremities BL. Laboratory Results - last 24 hr CBC, BMP 08/07/17 08:00 08/07/17 08:00 08/06/17 07:00 08/06/17 07:00 08/06/17 08/06/17 08/06/17 07:00 07:00 11:46 WBC 8.9 RBC 3.41 L Hgb 9.5 L Hct 28.7 L MCV 84.1 MCH 27.9 MCHC 33.1 RDW 15.6 Plt Count 153 D MPV 10.0 Neutrophils % 79.6 Lymphocytes % 11.1 Monocytes % 7.6 Eosinophils % 1.6 Basophils % 0.1 Sodium 138 Potassium 3.9 Chloride 100 Carbon Dioxide 30 Anion Gap 8 BUN 11 Creatinine 0.6 POC Glucometer 151 Random Glucose 141 H Calcium 7.7 L 08/06/17 08/06/17 08/07/17 17:03 20:43 06:14 WBC RBC Hgb Hct MCV MCH MCHC RDW Plt Count MPV Neutrophils % Lymphocytes % Monocytes % Eosinophils % Basophils % Sodium Potassium Chloride Carbon Dioxide Anion Gap BUN Creatinine POC Glucometer 270 114 163 Random Glucose Calcium Active Medications Generic Name Dose Route Start Last Admin Trade Name Freq PRN Reason Stop Dose Admin Acetaminophen 650 mg 08/01/17 10:55 08/06/17 21:34 Tylenol - PO 650 mg Q6H PRN Administration PAIN LEVEL 1-5 Alprazolam 0.25 mg 08/01/17 22:00 08/06/17 21:34 Xanax - PO 0.25 mg HS MARY Administration Atorvastatin Calcium 10 mg 08/01/17 22:00 08/06/17 21:34 Lipitor - PO 10 mg HS MARY Administration Bisacodyl 10 mg 08/05/17 11:28 08/06/17 09:15 Dulcolax Suppository - RC 10 mg DAILY PRN Administration CONSTIPATION Docusate Sodium 100 mg 08/02/17 13:50 08/05/17 21:54 Colace - PO 100 mg BID PRN Administration CONSTIPATION Enoxaparin Sodium 40 mg 08/06/17 10:00 08/06/17 09:14 Lovenox - SQ 40 mg DAILY MARY Administration Guaifenesin 5 ml 08/04/17 07:01 Diabetic Tussin Dm - PO Q4H PRN COUGH Insulin Aspart 1 vial 08/01/17 07:00 08/07/17 06:15 Novolog Vial Sliding Scale - SQ 2 units ACHS MARY Administration Protocol Levothyroxine Sodium 50 mcg 08/01/17 07:00 08/07/17 06:15 Synthroid - PO 50 mcg DAILY@0700 MARY Administration Losartan Potassium 25 mg 08/01/17 10:45 08/06/17 09:14 Cozaar - PO 25 mg DAILY MARY Administration Ondansetron HCl 4 mg 07/31/17 23:02 08/02/17 18:53 Zofran Injection IVPUSH 4 mg Q4H PRN Administration NAUSEA AND/OR VOMITING Ondansetron HCl 4 mg 08/02/17 15:14 Zofran Injection IVPUSH Q6H PRN NAUSEA AND/OR VOMITING Polyethylene Glycol 17 gm 08/04/17 12:30 08/06/17 09:15 Miralax (For Daily Use) - PO 17 gm DAILY MARY Administration Promethazine HCl 12.5 mg 08/02/17 15:14 Phenergan Injection - IVPUSH Q6H PRN NAUSEA-FOR RESCUE AFTER 15 MIN No micro CXR 07/31 - prominent mediastinum; no acute pathology Hip/femur XR 07/31 - Comminuted fx of the proximal femur noted. Abdominal XR 08/01 - abdominal distension compatible with ileus. Left femoral fx. CT L leg 08/04- Impression: Status post op and placement of metallic hardware from femoral shaft fracture. There is significant soft tissue swelling in the proximal and mid thigh with soft tissue air. Focal ill-defined area of heterogeneous density seen just lateral and superior to the left hip measuring 5 x 2.5 cm suggestive of a hematoma. There is also fluid seen along lateral aspect of the entire left thigh with air pockets consistent with postop changes/ collection. Cannot rule out a hematoma. Significant subcutaneous edema/ stranding is present along entire lateral and posterior aspect of the left thigh. No gross vascular extravasation of contrast is identified. ASSESSMENT/PLAN: Pt is 71 yo F with pmh of NIDDM, HTN, HLD, hypothyroidism who presents from [place] s/p a mechanical fall this AM. Now with imaging confirmed L femur fx. Surgical correction on 08/[address] Shields, POD5, doing well, Hgb stable. Pt awaiting approval for SNF, however emergency medical insurance with no approval for current options. Pt still with pain during ambulation. #L femur fx - comminuted proximal L femur fx on XR; CT of L leg notable for hematoma - Ortho following - PWB, OOB; will medicate with PO oxy 30 minutes prior to ambulation to enable improved compliance - Pain control with PO tylenol - phenergan, zofran for N/V - d/c to [facility] once approved; may require home discharge with wheelchair/walker - neuro/vascular checks Qshift - ultram for muscle spasms - PO hydration - PT eval - repeat H/H if still bleeding from surgical site - ISS - Xanax prn for anxiety #anemia -9.4 today; s/p 1 unit prbcs - significant blood loss during surg; 2 units intraop - trend hgb; serial cbcs - transfuse at <7 - No further evidence of bleeding #HTN -c/w ARB #Constipation - colace - miralax prn - Dulcolax PRN #HLD -c/w home statin #Hypothyroidism -c/w home synthroid #NIDDM - hold home oral diabetic agents; diabetic diet - ISS - BGMs q4h FEN PO hydration Daily lytes sodium controlled diet PPX Lovenox Plan discussed with attending, Dr. Jackie Ma, PGY1 Visit type - Emergency Visit Emergency Visit: Yes ED Registration Date: 07/31/17 Care time: The patient presented to the Emergency Department on the above date and was hospitalized for further evaluation of their emergent condition. - New Patient This patient is new to me today: No - Critical Care Critical Care patient: No - Discharge Referral Referred to [facility] Med P.C.: No
[2017-08-07 08:55] LABS: BASO % 0.4 % (0-2.0); EOS % 1.1 % (0-4.5); HEMATOCRIT 28.4 % (32.4-45.2); HEMOGLOBIN 9.4 GM/dL (10.7-15.3); LYMPH % 9.6 % (8-40); MCH 27.7 pg (25.7-33.7); MCHC 33.2 g/dl (32.0-36.0); MEAN CELL VOLUME 83.4 fl (80-96); MEAN PLT VOLUME 9.6 fl (7.5-11.1); MONO % 6.4 % (3.8-10.2); NEUT % 82.5 % (42.8-82.8); PLATELET COUNT 188 K/MM3 (134-434); RBC 3.41 M/mm3 (3.60-5.2); RDW 15.6 % (11.6-15.6); WHITE BLOOD COUNT 10.3 K/mm3 (4.0-10.0)
[2017-08-07 09:27] LABS: ANION GAP 8 (8-16); BLOOD UREA NITROGEN 11 mg/dL (7-18); CALCIUM 7.8 mg/dL (8.5-10.1); CHLORIDE 102 mmol/L (98-107); CO2 28 mmol/L (21-32); CREATININE 0.6 mg/dL (0.55-1.02); GLUCOSE,RANDOM 197 mg/dL (74-106); POTASSIUM 3.9 mmol/L (3.5-5.1); SODIUM 138 mmol/L (136-145)
[2017-08-07] MEDS: LOSARTAN POTASSIUM 25 MG TABLET PO SCH (10:03)
[2017-08-07] MEDS: DOCUSATE SODIUM 100 MG CAPSULE (FP) PO PRN (10:03)
[2017-08-07] MEDS: ENOXAPARIN NA (PORCINE) 40 MG/0.4 ML DISP.SYRIN SQ SCH (10:04)
[2017-08-07] MEDS: ACETAMINOPHEN 325 MG TABLET (FP) PO PRN ×2 (10:04→16:56)
[2017-08-07] MEDS: POLYETHYLENE GLYCOL 3350 119 GM BTL PO SCH (10:04)
--- NOTE | 2017-08-07 14:16 | PN ---
Progress Note (short form) - Note Progress Note: AVSS INCISIONS CLEAN AND DRY CLAF SOFT AND NT NVI IMP: DOING WELL PLAN: OOB, PT-WBAT, DC PLANNING
--- NOTE | 2017-08-07 14:47 | PN ---
Teaching Attending Note Name of Resident: Raffaele Ma ATTENDING PHYSICIAN STATEMENT I saw and evaluated the patient. I reviewed the resident's note and discussed the case with the resident. I agree with the resident's findings and plan as documented with exceptions below. SUBJECTIVE: Patient seen and examined. Left thigh pain, working with PT, but no new concerns. OBJECTIVE: Vital Signs Period Temp Pulse Resp BP Sys/Bull Pulse Ox Last 24 Hr 98.1 F-99.5 F 87-106 16-20 98-120/53-66 96-96 Intake & Output 08/04/17 08/05/17 08/06/17 08/07/17 23:59 23:59 23:59 23:59 Intake Total 3125 750 670 400 Output Total 0908 523 4333 700 Balance 0855 -716 -9412 -300 General: sitting in bed in no acute distress Extremities: left thigh swelling unchanged, working with PT currently Home Medication List Medication Instructions Recorded Confirmed Type Alprazolam [Xanax] 0.25 mg PO HS 07/31/17 07/31/17 History Atorvastatin Ca [Lipitor] 10 mg PO HS 07/31/17 07/31/17 History Diclofenac Sodium [Diclofenac 100 mg PO DAILY PRN 07/31/17 07/31/17 History Sodium ER] Glimepiride 2 mg PO DAILY 07/31/17 07/31/17 History Levothyroxine [Synthroid -] 50 mcg PO DAILY 07/31/17 07/31/17 History Mag Hydrox/Aluminum Hyd/Simeth 1 each PO PRN PRN 07/31/17 07/31/17 History [Gelusil Tablet Chewable] Metformin HCl [Metformin HCl ER] 1,000 mg PO DAILY 07/31/17 07/31/17 History Nitroglycerin ER Capsule - 2.5 mg PO BID 07/31/17 07/31/17 History Pantoprazole Sodium [Protonix -] 40 mg PO DAILY 07/31/17 07/31/17 History Patient Specific Medications [Pt 10 mg PO DAILY 07/31/17 07/31/17 History Own Med Drawer -] Patient Specific Medications [Pt 20 mg PO DAILY 07/31/17 07/31/17 History Own Med Drawer -] Telmisartan [Micardis] 40 mg PO HS 07/31/17 07/31/17 History Metformin HCl 1,000 mg PO ACBK 08/01/17 08/01/17 History Active Medications Generic Name Dose Route Start Last Admin Trade Name Freq PRN Reason Stop Dose Admin Acetaminophen 650 mg 08/01/17 10:55 08/07/17 10:04 Tylenol - PO 650 mg Q6H PRN Administration PAIN LEVEL 1-5 Alprazolam 0.25 mg 08/01/17 22:00 08/06/17 21:34 Xanax - PO 0.25 mg HS MARY Administration Atorvastatin Calcium 10 mg 08/01/17 22:00 08/06/17 21:34 Lipitor - PO 10 mg HS MARY Administration Bisacodyl 10 mg 08/05/17 11:28 08/06/17 09:15 Dulcolax Suppository - RC 10 mg DAILY PRN Administration CONSTIPATION Docusate Sodium 100 mg 08/02/17 13:50 08/07/17 10:03 Colace - PO 100 mg BID PRN Administration CONSTIPATION Enoxaparin Sodium 40 mg 08/06/17 10:00 08/07/17 10:04 Lovenox - SQ 40 mg DAILY MARY Administration Guaifenesin 5 ml 08/04/17 07:01 Diabetic Tussin Dm - PO Q4H PRN COUGH Insulin Aspart 1 vial 08/01/17 07:00 08/07/17 12:08 Novolog Vial Sliding Scale - SQ 4 units ACHS MARY Administration Protocol Levothyroxine Sodium 50 mcg 08/01/17 07:00 08/07/17 06:15 Synthroid - PO 50 mcg DAILY@0700 MARY Administration Losartan Potassium 25 mg 08/01/17 10:45 08/07/17 10:03 Cozaar - PO Not Given DAILY MARY Ondansetron HCl 4 mg 07/31/17 23:02 08/02/17 18:53 Zofran Injection IVPUSH 4 mg Q4H PRN Administration NAUSEA AND/OR VOMITING Ondansetron HCl 4 mg 08/02/17 15:14 Zofran Injection IVPUSH Q6H PRN NAUSEA AND/OR VOMITING Oxycodone HCl 5 mg 08/07/17 13:40 Roxicodone - PO Q4H PRN PAIN LEVEL 6-10 Polyethylene Glycol 17 gm 08/04/17 12:30 08/07/17 10:04 Miralax (For Daily Use) - PO 17 gm DAILY MARY Administration Promethazine HCl 12.5 mg 08/02/17 15:14 Phenergan Injection - IVPUSH Q6H PRN NAUSEA-FOR RESCUE AFTER 15 MIN Laboratory Results - last 24 hr 08/04/17 08/06/17 08/06/17 09:55 17:03 20:43 WBC RBC Hgb Hct MCV MCH MCHC RDW Plt Count MPV Neutrophils % Lymphocytes % Monocytes % Eosinophils % Basophils % Sodium Potassium Chloride Carbon Dioxide Anion Gap BUN Creatinine POC Glucometer 270 114 Random Glucose Calcium Blood Type O POSITIVE Antibody Screen Negative Crossmatch See Detail 08/07/17 08/07/17 08/07/17 06:14 08:00 08:00 WBC 10.3 H RBC 3.41 L Hgb 9.4 L Hct 28.4 L MCV 83.4 MCH 27.7 MCHC 33.2 RDW 15.6 Plt Count 188 D MPV 9.6 Neutrophils % 82.5 Lymphocytes % 9.6 Monocytes % 6.4 Eosinophils % 1.1 Basophils % 0.4 D Sodium 138 Potassium 3.9 Chloride 102 Carbon Dioxide 28 Anion Gap 8 BUN 11 Creatinine 0.6 POC Glucometer 163 Random Glucose 197 H Calcium 7.8 L Blood Type Antibody Screen Crossmatch 08/07/17 12:05 WBC RBC Hgb Hct MCV MCH MCHC RDW Plt Count MPV Neutrophils % Lymphocytes % Monocytes % Eosinophils % Basophils % Sodium Potassium Chloride Carbon Dioxide Anion Gap BUN Creatinine POC Glucometer 228 Random Glucose Calcium Blood Type Antibody Screen Crossmatch ASSESSMENT AND PLAN: 71yo F wtih PMH DM, HTn hypothyroid, and dyslipidemia and RBBB presented after tripping and falling on the sidewalk and found to have a L femoral fracture -Mechanical fall/Left femur fracture s/p intramedullary racquel 08/02 -Acute blood loss anemia from intra-op blood loss now with LLE hematoma/mild oozing from the site s/p 3 units PRBC -RBBB, old vs new, evaluated by cardiology pre-operatively -Abdominal distension, improved -NIDDM -HTN -HLD -hypothyroidism -Anxiety Plan: h/h stable. CT LE noted. Orthopedic input noted. Lovenox for DVTPPx PT eval, [facility] if able and medically optimized. Pain control,change to oxycodone/ tylenol. s/p bowel movement, continue aggressive bowel regimen and encourage ambulation. Incentive spirometry. resume oral diabetic agents in 24 hours if blood sugars continue to stay high as PO intake improves, ISS, diabetic diet. Losartan. Monitor BP statin Levothyroxine Xanax hs DVTPPX per orthopedic. DIspo CM input noted.d/c to [facility] if able, will continue to work with PT to co- ordinate discharge with family. Plan discussed with patient in detail, all questions answered
[2017-08-07] MEDS: oxyCODONE HCL 5 MG TABLET PO PRN (16:55)
[2017-08-07] MEDS: ATORVASTATIN CA 10 MG TABLET (FP) PO SCH (22:15)
[2017-08-07] MEDS: ALPRAZolam 0.25 MG TABLET PO SCH (22:15)
[2017-08-08] MEDS: LEVOTHYROXINE NA 50 MCG TABLET (FP) PO SCH (06:25)
[2017-08-08] MEDS: INSULIN SLIDING SCALE (NOVOLOG) 1 VIAL SQ SCH ×4 (06:27→21:01)
[2017-08-08 08:19] LABS: HEMATOCRIT 29.8 % (32.4-45.2); HEMOGLOBIN 9.7 GM/dL (10.7-15.3); MCH 27.7 pg (25.7-33.7); MCHC 32.7 g/dl (32.0-36.0); MEAN CELL VOLUME 84.7 fl (80-96); MEAN PLT VOLUME 9.1 fl (7.5-11.1); PLATELET COUNT 215 K/MM3 (134-434); RBC 3.52 M/mm3 (3.60-5.2); RDW 15.7 % (11.6-15.6); WHITE BLOOD COUNT 9.5 K/mm3 (4.0-10.0)
[2017-08-08 08:53] LABS: ANION GAP 8 (8-16); BLOOD UREA NITROGEN 12 mg/dL (7-18); CHLORIDE 101 mmol/L (98-107); CO2 30 mmol/L (21-32); CREATININE 0.5 mg/dL (0.55-1.02); GLUCOSE,RANDOM 155 mg/dL (74-106); POTASSIUM 3.9 mmol/L (3.5-5.1); SODIUM 139 mmol/L (136-145)
--- NOTE | 2017-08-08 10:45 | PN ---
Teaching Attending Note Name of Resident: Paramjit Lopez ATTENDING PHYSICIAN STATEMENT I saw and evaluated the patient. I reviewed the resident's note and discussed the case with the resident. I agree with the resident's findings and plan as documented with exceptions below. SUBJECTIVE: Patient seen and examined. left thigh pain but slowly improving, no new concerns. Working with PT. OBJECTIVE: Vital Signs Period Temp Pulse Resp BP Sys/Bull Pulse Ox Last 24 Hr 98.1 F-98.6 F 91-103 17-20 104-122/60-70 96 Intake & Output 08/05/17 08/06/17 08/07/17 08/08/17 23:59 23:59 23:59 23:59 Intake Total 750 670 800 Output Total 900 2000 1300 Balance -150 -1330 -500 General: sitting in bed in no acute distress Chest: CTAB, no rales or wheezing abdomen: soft, obese, NT Extremities: left thigh swelling stable, no bleeding, incision clean, positive DP pulses Home Medication List Medication Instructions Recorded Confirmed Type Alprazolam [Xanax] 0.25 mg PO HS 07/31/17 07/31/17 History Atorvastatin Ca [Lipitor] 10 mg PO HS 07/31/17 07/31/17 History Diclofenac Sodium [Diclofenac 100 mg PO DAILY PRN 07/31/17 07/31/17 History Sodium ER] Glimepiride 2 mg PO DAILY 07/31/17 07/31/17 History Levothyroxine [Synthroid -] 50 mcg PO DAILY 07/31/17 07/31/17 History Mag Hydrox/Aluminum Hyd/Simeth 1 each PO PRN PRN 07/31/17 07/31/17 History [Gelusil Tablet Chewable] Metformin HCl [Metformin HCl ER] 1,000 mg PO DAILY 07/31/17 07/31/17 History Nitroglycerin ER Capsule - 2.5 mg PO BID 07/31/17 07/31/17 History Pantoprazole Sodium [Protonix -] 40 mg PO DAILY 07/31/17 07/31/17 History Patient Specific Medications [Pt 10 mg PO DAILY 07/31/17 07/31/17 History Own Med Drawer -] Patient Specific Medications [Pt 20 mg PO DAILY 07/31/17 07/31/17 History Own Med Drawer -] Telmisartan [Micardis] 40 mg PO HS 07/31/17 07/31/17 History Metformin HCl 1,000 mg PO ACBK 08/01/17 08/01/17 History Active Medications Generic Name Dose Route Start Last Admin Trade Name Freq PRN Reason Stop Dose Admin Acetaminophen 650 mg 08/01/17 10:55 08/07/17 16:56 Tylenol - PO 650 mg Q6H PRN Administration PAIN LEVEL 1-5 Alprazolam 0.25 mg 08/01/17 22:00 08/07/17 22:15 Xanax - PO 0.25 mg HS MARY Administration Atorvastatin Calcium 10 mg 08/01/17 22:00 08/07/17 22:15 Lipitor - PO 10 mg HS MARY Administration Bisacodyl 10 mg 08/05/17 11:28 08/06/17 09:15 Dulcolax Suppository - RC 10 mg DAILY PRN Administration CONSTIPATION Docusate Sodium 100 mg 08/02/17 13:50 08/07/17 10:03 Colace - PO 100 mg BID PRN Administration CONSTIPATION Enoxaparin Sodium 40 mg 08/06/17 10:00 08/07/17 10:04 Lovenox - SQ 40 mg DAILY MARY Administration Guaifenesin 5 ml 08/04/17 07:01 Diabetic Tussin Dm - PO Q4H PRN COUGH Insulin Aspart 1 vial 08/01/17 07:00 08/08/17 06:27 Novolog Vial Sliding Scale - SQ 2 units ACHS MARY Administration Protocol Levothyroxine Sodium 50 mcg 08/01/17 07:00 08/08/17 06:25 Synthroid - PO 50 mcg DAILY@0700 MARY Administration Losartan Potassium 25 mg 08/01/17 10:45 08/07/17 10:03 Cozaar - PO Not Given DAILY MARY Ondansetron HCl 4 mg 07/31/17 23:02 08/02/17 18:53 Zofran Injection IVPUSH 4 mg Q4H PRN Administration NAUSEA AND/OR VOMITING Ondansetron HCl 4 mg 08/02/17 15:14 Zofran Injection IVPUSH Q6H PRN NAUSEA AND/OR VOMITING Oxycodone HCl 5 mg 08/07/17 13:40 08/07/17 16:55 Roxicodone - PO 5 mg Q4H PRN Administration PAIN LEVEL 6-10 Polyethylene Glycol 17 gm 08/04/17 12:30 08/07/17 10:04 Miralax (For Daily Use) - PO 17 gm DAILY MARY Administration Promethazine HCl 12.5 mg 08/02/17 15:14 Phenergan Injection - IVPUSH Q6H PRN NAUSEA-FOR RESCUE AFTER 15 MIN Home Medication List Medication Instructions Recorded Confirmed Type Alprazolam [Xanax] 0.25 mg PO HS 07/31/17 07/31/17 History Atorvastatin Ca [Lipitor] 10 mg PO HS 07/31/17 07/31/17 History Diclofenac Sodium [Diclofenac 100 mg PO DAILY PRN 07/31/17 07/31/17 History Sodium ER] Glimepiride 2 mg PO DAILY 07/31/17 07/31/17 History Levothyroxine [Synthroid -] 50 mcg PO DAILY 07/31/17 07/31/17 History Mag Hydrox/Aluminum Hyd/Simeth 1 each PO PRN PRN 07/31/17 07/31/17 History [Gelusil Tablet Chewable] Metformin HCl [Metformin HCl ER] 1,000 mg PO DAILY 07/31/17 07/31/17 History Nitroglycerin ER Capsule - 2.5 mg PO BID 07/31/17 07/31/17 History Pantoprazole Sodium [Protonix -] 40 mg PO DAILY 07/31/17 07/31/17 History Patient Specific Medications [Pt 10 mg PO DAILY 07/31/17 07/31/17 History Own Med Drawer -] Patient Specific Medications [Pt 20 mg PO DAILY 07/31/17 07/31/17 History Own Med Drawer -] Telmisartan [Micardis] 40 mg PO HS 07/31/17 07/31/17 History Metformin HCl 1,000 mg PO ACBK 08/01/17 08/01/17 History Laboratory Results - last 24 hr 08/04/17 08/07/17 08/07/17 09:55 12:05 17:12 WBC RBC Hgb Hct MCV MCH MCHC RDW Plt Count MPV Neutrophils % Lymphocytes % Sodium Potassium Chloride Carbon Dioxide Anion Gap BUN Creatinine POC Glucometer 228 182 Random Glucose Calcium Blood Type O POSITIVE Antibody Screen Negative Crossmatch See Detail 08/07/17 08/08/17 08/08/17 22:14 06:24 07:30 WBC 9.5 RBC 3.52 L Hgb 9.7 L Hct 29.8 L MCV 84.7 MCH 27.7 MCHC 32.7 RDW 15.7 H Plt Count 215 MPV 9.1 Neutrophils % No Result Required. Lymphocytes % No Result Required. Sodium Potassium Chloride Carbon Dioxide Anion Gap BUN Creatinine POC Glucometer 146 161 Random Glucose Calcium Blood Type Antibody Screen Crossmatch 08/08/17 07:30 WBC RBC Hgb Hct MCV MCH MCHC RDW Plt Count MPV Neutrophils % Lymphocytes % Sodium 139 Potassium 3.9 Chloride 101 Carbon Dioxide 30 Anion Gap 8 BUN 12 Creatinine 0.5 L POC Glucometer Random Glucose 155 H Calcium 8.0 L Blood Type Antibody Screen Crossmatch ASSESSMENT AND PLAN: 71yo F wtih PMH DM, HTn hypothyroid, and dyslipidemia and RBBB presented after tripping and falling on the sidewalk and found to have a L femoral fracture -Mechanical fall/Left femur fracture s/p intramedullary racquel 08/02 -Acute blood loss anemia from intra-op blood loss now with LLE hematoma/mild oozing from the site s/p 3 units PRBC -RBBB, old vs new, evaluated by cardiology pre-operatively -Abdominal distension, improved -NIDDM -HTN -HLD -hypothyroidism -Anxiety Plan: h/h stable. CT LE noted. Orthopedic input noted. Lovenox for DVTPPx PT eval, [facility] if able and medically optimized. Pain control, Oxycodone/tylenol. s/p bowel movement, continue aggressive bowel regimen and encourage ambulation. Incentive spirometry. Resume glimepiride, ISS, diabetic diet. Losartan. Monitor BP statin Levothyroxine Xanax hs DVTPPX per orthopedic. DIspo CM input noted.d/c to [facility] if able, will continue to work with PT to co- ordinate discharge with family. Plan discussed with patient in detail, all questions answered
[2017-08-08] MEDS: LOSARTAN POTASSIUM 25 MG TABLET PO SCH (10:48)
[2017-08-08] MEDS: ENOXAPARIN NA (PORCINE) 40 MG/0.4 ML DISP.SYRIN SQ SCH (10:48)
[2017-08-08] MEDS: POLYETHYLENE GLYCOL 3350 119 GM BTL PO SCH (10:48)
[2017-08-08] MEDS: DOCUSATE SODIUM 100 MG CAPSULE (FP) PO PRN ×2 (10:48→21:00)
[2017-08-08] MEDS: oxyCODONE HCL 5 MG TABLET PO PRN ×2 (11:24→21:00)
[2017-08-08] MEDS ORDERED: GLIMEPIRIDE 2 MG TABLET (FP) PO ONE (12:00)
[2017-08-08 12:52] LABS: PLATELET ESTIMATE NORMAL
[2017-08-08] MEDS ORDERED: INSULIN (NOVOLOG) ASPART 100 UNITS/ML 10ML VIAL ONE (20:59)
[2017-08-08] MEDS: ATORVASTATIN CA 10 MG TABLET (FP) PO SCH (21:00)
[2017-08-08] MEDS: ALPRAZolam 0.25 MG TABLET PO SCH (22:25)
[2017-08-09] MEDS: GLIMEPIRIDE 2 MG TABLET (FP) PO SCH (06:54)
[2017-08-09] MEDS: INSULIN SLIDING SCALE (NOVOLOG) 1 VIAL SQ SCH ×4 (06:54→21:07)
[2017-08-09] MEDS: LEVOTHYROXINE NA 50 MCG TABLET (FP) PO SCH (06:57)
[2017-08-09 08:49] LABS: HEMATOCRIT 28.7 % (32.4-45.2); HEMOGLOBIN 9.6 GM/dL (10.7-15.3); MCHC 33.4 g/dl (32.0-36.0); MEAN CELL VOLUME 83.9 fl (80-96); PLATELET COUNT 244 K/MM3 (134-434); RBC 3.42 M/mm3 (3.60-5.2); RDW 15.7 % (11.6-15.6); WHITE BLOOD COUNT 9.9 K/mm3 (4.0-10.0)
[2017-08-09] MEDS: POLYETHYLENE GLYCOL 3350 119 GM BTL PO SCH (09:40)
[2017-08-09] MEDS: ENOXAPARIN NA (PORCINE) 40 MG/0.4 ML DISP.SYRIN SQ SCH (09:40)
[2017-08-09] MEDS: LOSARTAN POTASSIUM 25 MG TABLET PO SCH (09:40)
[2017-08-09] MEDS: ACETAMINOPHEN 325 MG TABLET (FP) PO PRN (09:45)
[2017-08-09 10:26] LABS: PLATELET ESTIMATE ADEQUATE
--- NOTE | 2017-08-09 10:28 | PN ---
Progress Note (short form) - Note Progress Note: ORTHOPEDICALLY STABLE DC PLANNING
--- NOTE | 2017-08-09 16:29 | PN ---
Teaching Attending Note Name of Resident: Ben Mejia SUBJECTIVE: Patient seen and examined. left thigh pain improving, no new complaints. OBJECTIVE: Vital Signs Period Temp Pulse Resp BP Sys/Bull Pulse Ox Last 24 Hr 98.2 F-98.7 F 94-105 18-21 89-120/52-60 96 Intake & Output 08/06/17 08/07/17 08/08/17 08/09/17 23:59 23:59 23:59 23:59 Intake Total 670 800 850 700 Output Total 2000 1300 400 Balance -1330 -500 850 300 General: sitting in chair in no acute distress Extremities: left thigh swelling with some improvement, incision site clean, with no active bleed Abdomen:soft, obese, NT Chest: CTAB, no rales or wheezing Home Medication List Medication Instructions Recorded Confirmed Type Alprazolam [Xanax] 0.25 mg PO HS 07/31/17 07/31/17 History Atorvastatin Ca [Lipitor] 10 mg PO HS 07/31/17 07/31/17 History Diclofenac Sodium [Diclofenac 100 mg PO DAILY PRN 07/31/17 07/31/17 History Sodium ER] Glimepiride 2 mg PO DAILY 07/31/17 07/31/17 History Levothyroxine [Synthroid -] 50 mcg PO DAILY 07/31/17 07/31/17 History Mag Hydrox/Aluminum Hyd/Simeth 1 each PO PRN PRN 07/31/17 07/31/17 History [Gelusil Tablet Chewable] Metformin HCl [Metformin HCl ER] 1,000 mg PO DAILY 07/31/17 07/31/17 History Nitroglycerin ER Capsule - 2.5 mg PO BID 07/31/17 07/31/17 History Pantoprazole Sodium [Protonix -] 40 mg PO DAILY 07/31/17 07/31/17 History Patient Specific Medications [Pt 10 mg PO DAILY 07/31/17 07/31/17 History Own Med Drawer -] Patient Specific Medications [Pt 20 mg PO DAILY 07/31/17 07/31/17 History Own Med Drawer -] Telmisartan [Micardis] 40 mg PO HS 07/31/17 07/31/17 History Metformin HCl 1,000 mg PO ACBK 08/01/17 08/01/17 History Active Medications Generic Name Dose Route Start Last Admin Trade Name Freq PRN Reason Stop Dose Admin Acetaminophen 650 mg 08/01/17 10:55 08/09/17 09:45 Tylenol - PO 650 mg Q6H PRN Administration PAIN LEVEL 1-5 Alprazolam 0.25 mg 08/01/17 22:00 08/08/17 22:25 Xanax - PO 0.25 mg HS MARY Administration Atorvastatin Calcium 10 mg 08/01/17 22:00 08/08/17 21:00 Lipitor - PO 10 mg HS MARY Administration Bisacodyl 10 mg 08/05/17 11:28 08/06/17 09:15 Dulcolax Suppository - RC 10 mg DAILY PRN Administration CONSTIPATION Docusate Sodium 100 mg 08/02/17 13:50 08/08/17 21:00 Colace - PO 100 mg BID PRN Administration CONSTIPATION Enoxaparin Sodium 40 mg 08/06/17 10:00 08/09/17 09:40 Lovenox - SQ 40 mg DAILY [facility] Administration Glimepiride 2 mg 08/09/17 07:00 08/09/17 06:54 Amaryl - PO 2 mg DAILY@0700 [facility] Administration Guaifenesin 5 ml 08/04/17 07:01 Diabetic Tussin Dm - PO Q4H PRN COUGH Insulin Aspart 1 vial 08/01/17 07:00 08/09/17 10:50 Novolog Vial Sliding Scale - SQ Not Given ACHS [facility] Protocol Levothyroxine Sodium 50 mcg 08/01/17 07:00 08/09/17 06:57 Synthroid - PO 50 mcg DAILY@0700 [facility] Administration Losartan Potassium 25 mg 08/01/17 10:45 08/09/17 09:40 Cozaar - PO 25 mg DAILY [facility] Administration Ondansetron HCl 4 mg 07/31/17 23:02 08/02/17 18:53 Zofran Injection IVPUSH 4 mg Q4H PRN Administration NAUSEA AND/OR VOMITING Ondansetron HCl 4 mg 08/02/17 15:14 Zofran Injection IVPUSH Q6H PRN NAUSEA AND/OR VOMITING Oxycodone HCl 5 mg 08/07/17 13:40 08/08/17 21:00 Roxicodone - PO 5 mg Q4H PRN Administration PAIN LEVEL 6-10 Polyethylene Glycol 17 gm 08/04/17 12:30 08/09/17 09:40 Miralax (For Daily Use) - PO Not Given DAILY [facility]ARY Promethazine HCl 12.5 mg 08/02/17 15:14 Phenergan Injection - IVPUSH Q6H PRN NAUSEA-FOR RESCUE AFTER 15 MIN Laboratory Results - last 24 hr 08/08/17 08/08/17 08/09/17 16:30 20:54 05:47 WBC RBC Hgb Hct MCV MCH MCHC RDW Plt Count MPV Neutrophils % Neutrophils % (Manual) Band Neutrophils % Lymphocytes % Lymphocytes % (Manual) Monocytes % (Manual) Eosinophils % (Manual) Basophils % (Manual) Metamyelocytes Platelet Estimate POC Glucometer 196 203 151 08/09/17 08/09/17 08/09/17 08:14 10:16 14:51 WBC 9.9 RBC 3.42 L Hgb 9.6 L Hct 28.7 L MCV 83.9 MCH 28.0 MCHC 33.4 RDW 15.7 H Plt Count 244 MPV 9.0 Neutrophils % No Result Required. Neutrophils % (Manual) 74.0 Band Neutrophils % 8.0 Lymphocytes % No Result Required. Lymphocytes % (Manual) 13.0 D Monocytes % (Manual) 2 L Eosinophils % (Manual) 1.0 Basophils % (Manual) 0.0 Metamyelocytes 2 D Platelet Estimate Adequate POC Glucometer 148 183 ASSESSMENT AND PLAN: 71yo F wtih PMH DM, HTn hypothyroid, and dyslipidemia and RBBB presented after tripping and falling on the sidewalk and found to have a L femoral fracture -Mechanical fall/Left femur fracture s/p intramedullary racquel 08/02 -Acute blood loss anemia from intra-op blood loss now with LLE hematoma/mild oozing from the site s/p 3 units PRBC -RBBB, old vs new, evaluated by cardiology pre-operatively -Abdominal distension, improved -NIDDM -HTN -HLD -hypothyroidism -Anxiety Plan: h/h stable. CT LE noted. Orthopedic input noted. Lovenox for DVTPPx PT eval, [facility] if able and medically optimized. Pain control, Oxycodone/tylenol. s/p bowel movement, continue aggressive bowel regimen and encourage ambulation. Incentive spirometry. Resumed glimepiride, ISS, diabetic diet. Resume metformin in 24-48 hours Losartan. Monitor BP statin Levothyroxine Xanax hs DVTPPX per orthopedic. Weekly labs or prn. DIspo CM input noted.d/c to [facility] if able, will continue to work with PT to co- ordinate discharge with family. Plan discussed with patient in detail, all questions answered
[2017-08-09] MEDS ORDERED: INSULIN (NOVOLOG) ASPART 100 UNITS/ML 10ML VIAL ONE (21:05)
[2017-08-09] MEDS: ATORVASTATIN CA 10 MG TABLET (FP) PO SCH (21:06)
[2017-08-09] MEDS: ALPRAZolam 0.25 MG TABLET PO SCH (21:06)
[2017-08-09] MEDS: oxyCODONE HCL 5 MG TABLET PO PRN (21:06)
--- NOTE | 2017-08-10 05:57 | PN ---
Physical Exam: SUBJECTIVE: Patient seen and examined - No major overnight events; OOB with walker; Afebrile, slightly tachy to 100s overnight; pain well controlled; no evidence of surgical site infection or active bleed; denies f/c/n/v/d, GRIFFITH, throat pain, cough, SOB, CP, palpitations, ab pain, back pain, FNDs OBJECTIVE: Vital Signs Intake & Output 08/07/17 08/08/17 08/09/17 08/10/17 23:59 23:59 23:59 23:59 Intake Total 800 850 900 Output Total 1300 400 Balance -500 850 500 Period Temp Pulse Resp BP Sys/Bull Pulse Ox Last 24 Hr 98 F-98.8 F 94-105 20-20 101-120/56-59 96-98 GENERAL: Elderly woman, NAD HEAD: NCAT EYES: Pupils equal, round and reactive to light, extraocular movements intact, sclera anicteric, conjunctiva clear. No lid lag. EARS, NOSE, THROAT: Poor dentition. Ears normal, nares patent, oropharynx clear without exudates. Moist mucous membranes. NECK: Normal range of motion, supple without lymphadenopathy, JVD, or masses. LUNGS: CTABL. No wheezes, and no crackles. No accessory muscle use. HEART: Regular rate and rhythm, normal S1 and S2 without murmur, rub or gallop. ABDOMEN: Globular. Soft, nontender, normoactive bowel sounds, no guarding, no rebound, no masses. No hepatomegaly or splenomegaly. MUSCULOSKELETAL: Surgical incision site well healed, with no erythema or purulence. Tender with active and passive movement. Normal range of motion at all joints. No bony deformities or tenderness. No CVA tenderness. UPPER EXTREMITIES: 2+ pulses, warm, well-perfused. No cyanosis. No clubbing. No peripheral edema. LOWER EXTREMITIES: 1+ pitting edema to L knee in L leg. 1+ DP/PT pulses BL. Preserved sensation to touch BL in LEs. NEUROLOGICAL: Cranial nerves grossly intact. 5/5 strength and preserved sensation in all extremities BL. Laboratory Results - last 24 hr CBC, BMP 08/09/17 08:14 08/08/17 07:30 08/09/17 08/09/17 08/09/17 05:47 08:14 10:16 WBC 9.9 RBC 3.42 L Hgb 9.6 L Hct 28.7 L MCV 83.9 MCH 28.0 MCHC 33.4 RDW 15.7 H Plt Count 244 MPV 9.0 Neutrophils % No Result Required. Neutrophils % (Manual) 74.0 Band Neutrophils % 8.0 Lymphocytes % No Result Required. Lymphocytes % (Manual) 13.0 D Monocytes % (Manual) 2 L Eosinophils % (Manual) 1.0 Basophils % (Manual) 0.0 Metamyelocytes 2 D Platelet Estimate Adequate POC Glucometer 151 148 08/09/17 08/09/17 08/10/17 14:51 20:43 05:10 WBC RBC Hgb Hct MCV MCH MCHC RDW Plt Count MPV Neutrophils % Neutrophils % (Manual) Band Neutrophils % Lymphocytes % Lymphocytes % (Manual) Monocytes % (Manual) Eosinophils % (Manual) Basophils % (Manual) Metamyelocytes Platelet Estimate POC Glucometer 183 258 101 Active Medications Generic Name Dose Route Start Last Admin Trade Name Freq PRN Reason Stop Dose Admin Acetaminophen 650 mg 08/01/17 10:55 08/09/17 09:45 Tylenol - PO 650 mg Q6H PRN Administration PAIN LEVEL 1-5 Alprazolam 0.25 mg 08/01/17 22:00 08/09/17 21:06 Xanax - PO 0.25 mg HS MARY Administration Atorvastatin Calcium 10 mg 08/01/17 22:00 08/09/17 21:06 Lipitor - PO 10 mg HS MARY Administration Bisacodyl 10 mg 08/05/17 11:28 08/06/17 09:15 Dulcolax Suppository - RC 10 mg DAILY PRN Administration CONSTIPATION Docusate Sodium 100 mg 08/02/17 13:50 08/08/17 21:00 Colace - PO 100 mg BID PRN Administration CONSTIPATION Enoxaparin Sodium 40 mg 08/06/17 10:00 08/09/17 09:40 Lovenox - SQ 40 mg DAILY [facility] Administration Glimepiride 2 mg 08/09/17 07:00 08/09/17 06:54 Amaryl - PO 2 mg DAILY@0700 [facility] Administration Guaifenesin 5 ml 08/04/17 07:01 Diabetic Tussin Dm - PO Q4H PRN COUGH Insulin Aspart 1 vial 08/01/17 07:00 08/09/17 21:07 Novolog Vial Sliding Scale - SQ 6 units ACHS [facility] Administration Protocol Levothyroxine Sodium 50 mcg 08/01/17 07:00 08/09/17 06:57 Synthroid - PO 50 mcg DAILY@0700 [facility] Administration Losartan Potassium 25 mg 08/01/17 10:45 08/09/17 09:40 Cozaar - PO 25 mg DAILY [facility] Administration Ondansetron HCl 4 mg 07/31/17 23:02 08/02/17 18:53 Zofran Injection IVPUSH 4 mg Q4H PRN Administration NAUSEA AND/OR VOMITING Ondansetron HCl 4 mg 08/02/17 15:14 Zofran Injection IVPUSH Q6H PRN NAUSEA AND/OR VOMITING Oxycodone HCl 5 mg 08/07/17 13:40 08/09/17 21:06 Roxicodone - PO 5 mg Q4H PRN Administration PAIN LEVEL 6-10 Polyethylene Glycol 17 gm 08/04/17 12:30 08/09/17 09:40 Miralax (For Daily Use) - PO Not Given DAILY [facility] Promethazine HCl 12.5 mg 08/02/17 15:14 Phenergan Injection - IVPUSH Q6H PRN NAUSEA-FOR RESCUE AFTER 15 MIN No micro CXR 07/31 - prominent mediastinum; no acute pathology Hip/femur XR 07/31 - Comminuted fx of the proximal femur noted. Abdominal XR 08/01 - abdominal distension compatible with ileus. Left femoral fx. CT L leg 08/04- Impression: Status post op and placement of metallic hardware from femoral shaft fracture. There is significant soft tissue swelling in the proximal and mid thigh with soft tissue air. Focal ill-defined area of heterogeneous density seen just lateral and superior to the left hip measuring 5 x 2.5 cm suggestive of a hematoma. There is also fluid seen along lateral aspect of the entire left thigh with air pockets consistent with postop changes/ collection. Cannot rule out a hematoma. Significant subcutaneous edema/ stranding is present along entire lateral and posterior aspect of the left thigh. No gross vascular extravasation of contrast is identified. ASSESSMENT/PLAN: Pt is 71 yo F with pmh of NIDDM, HTN, HLD, hypothyroidism who presents from [place] s/p a mechanical fall this AM. Now with imaging confirmed L femur fx. Surgical correction on 08/[address] Cornelius, POD5, doing well, Hgb stable. Pt awaiting approval for SNF, however emergency medical insurance with no approval for current options. Pt still with pain during ambulation. #L femur fx - comminuted proximal L femur fx on XR; CT of L leg notable for hematoma - Ortho following - PWB, OOB; will medicate with PO oxy 30 minutes prior to ambulation to enable improved compliance - Pain control with PO tylenol - phenergan, zofran for N/V - d/c to [facility] once approved; may require home discharge with wheelchair/walker - neuro/vascular checks Qshift - ultram for muscle spasms - PO hydration - PT eval - repeat H/H if still bleeding from surgical site - ISS - Xanax prn for anxiety #anemia -9.4 today; s/p 1 unit prbcs - significant blood loss during surg; 2 units intraop - trend hgb; serial cbcs - transfuse at <7 - No further evidence of bleeding #HTN -c/w ARB #Constipation - colace - miralax prn - Dulcolax PRN #HLD -c/w home statin #Hypothyroidism -c/w home synthroid #NIDDM - hold home oral diabetic agents; diabetic diet - ISS - BGMs q4h FEN PO hydration Daily lytes sodium controlled diet PPX Lovenox Plan discussed with attending, Dr. Jackie Ma, PGY1
[2017-08-10] MEDS: INSULIN SLIDING SCALE (NOVOLOG) 1 VIAL SQ SCH ×3 (06:46→16:51)
[2017-08-10] MEDS: GLIMEPIRIDE 2 MG TABLET (FP) PO SCH (06:48)
[2017-08-10] MEDS: LEVOTHYROXINE NA 50 MCG TABLET (FP) PO SCH (06:48)
--- NOTE | 2017-08-10 08:44 | PN ---
Progress Note (short form) - Note Progress Note: Ortho Pt seen and examined s/p left IM gamma nail Selected Entries 08/10/17 05:30 Temperature 97.6 F Pulse Rate 90 Respiratory 16 Rate Blood Pressure 118/67 Laboratory Tests 08/09/17 08:14 WBC 9.9 Hgb 9.6 L Hct 28.7 L Plt Count 244 incision c/d/i, zack intact, calf soft, nt nvi a/p PT PWB oob dvt ppx pain control d/c planning
--- NOTE | 2017-08-10 08:51 | PN ---
Teaching Attending Note Name of Resident: Raffaele Ma ATTENDING PHYSICIAN STATEMENT I saw and evaluated the patient. I reviewed the resident's note and discussed the case with the resident. I agree with the resident's findings and plan as documented with exceptions below. SUBJECTIVE: Patient seen and examined. left thigh pain but slowly improving. OBJECTIVE: Vital Signs Period Temp Pulse Resp BP Sys/Bull Pulse Ox Last 24 Hr 97.6 F-98.8 F 90-105 16-20 101-120/56-67 96-98 Intake & Output 08/07/17 08/08/17 08/09/17 08/10/17 23:59 23:59 23:59 23:59 Intake Total 800 850 900 200 Output Total 1300 400 Balance -500 850 500 200 General: sitting in chair, no acute distress Extremities: left thigh swelling, LE edema 2+, positive DP pulses Home Medication List Medication Instructions Recorded Confirmed Type Alprazolam [Xanax] 0.25 mg PO HS 07/31/17 07/31/17 History Atorvastatin Ca [Lipitor] 10 mg PO HS 07/31/17 07/31/17 History Diclofenac Sodium [Diclofenac 100 mg PO DAILY PRN 07/31/17 07/31/17 History Sodium ER] Glimepiride 2 mg PO DAILY 07/31/17 07/31/17 History Levothyroxine [Synthroid -] 50 mcg PO DAILY 07/31/17 07/31/17 History Mag Hydrox/Aluminum Hyd/Simeth 1 each PO PRN PRN 07/31/17 07/31/17 History [Gelusil Tablet Chewable] Metformin HCl [Metformin HCl ER] 1,000 mg PO DAILY 07/31/17 07/31/17 History Nitroglycerin ER Capsule - 2.5 mg PO BID 07/31/17 07/31/17 History Pantoprazole Sodium [Protonix -] 40 mg PO DAILY 07/31/17 07/31/17 History Patient Specific Medications [Pt 10 mg PO DAILY 07/31/17 07/31/17 History Own Med Drawer -] Patient Specific Medications [Pt 20 mg PO DAILY 07/31/17 07/31/17 History Own Med Drawer -] Telmisartan [Micardis] 40 mg PO HS 07/31/17 07/31/17 History Metformin HCl 1,000 mg PO ACBK 08/01/17 08/01/17 History Active Medications Generic Name Dose Route Start Last Admin Trade Name Freq PRN Reason Stop Dose Admin Acetaminophen 650 mg 08/01/17 10:55 08/09/17 09:45 Tylenol - PO 650 mg Q6H PRN Administration PAIN LEVEL 1-5 Alprazolam 0.25 mg 08/01/17 22:00 08/09/17 21:06 Xanax - PO 0.25 mg HS MARY Administration Atorvastatin Calcium 10 mg 08/01/17 22:00 08/09/17 21:06 Lipitor - PO 10 mg HS MARY Administration Bisacodyl 10 mg 08/05/17 11:28 08/06/17 09:15 Dulcolax Suppository - RC 10 mg DAILY PRN Administration CONSTIPATION Docusate Sodium 100 mg 08/02/17 13:50 08/08/17 21:00 Colace - PO 100 mg BID PRN Administration CONSTIPATION Enoxaparin Sodium 40 mg 08/06/17 10:00 08/09/17 09:40 Lovenox - SQ 40 mg DAILY [facility] Administration Glimepiride 2 mg 08/09/17 07:00 08/10/17 06:48 Amaryl - PO 2 mg DAILY@0700 [facility] Administration Guaifenesin 5 ml 08/04/17 07:01 Diabetic Tussin Dm - PO Q4H PRN COUGH Insulin Aspart 1 vial 08/01/17 07:00 08/10/17 06:46 Novolog Vial Sliding Scale - SQ Not Given ACHS [facility] Protocol Levothyroxine Sodium 50 mcg 08/01/17 07:00 08/10/17 06:48 Synthroid - PO 50 mcg DAILY@0700 [facility] Administration Losartan Potassium 25 mg 08/01/17 10:45 08/09/17 09:40 Cozaar - PO 25 mg DAILY [facility] Administration Ondansetron HCl 4 mg 07/31/17 23:02 08/02/17 18:53 Zofran Injection IVPUSH 4 mg Q4H PRN Administration NAUSEA AND/OR VOMITING Ondansetron HCl 4 mg 08/02/17 15:14 Zofran Injection IVPUSH Q6H PRN NAUSEA AND/OR VOMITING Oxycodone HCl 5 mg 08/07/17 13:40 08/09/17 21:06 Roxicodone - PO 5 mg Q4H PRN Administration PAIN LEVEL 6-10 Polyethylene Glycol 17 gm 08/04/17 12:30 08/09/17 09:40 Miralax (For Daily Use) - PO Not Given DAILY [facility] Promethazine HCl 12.5 mg 08/02/17 15:14 Phenergan Injection - IVPUSH Q6H PRN NAUSEA-FOR RESCUE AFTER 15 MIN ASSESSMENT AND PLAN: 71yo F wtih PMH DM, HTn hypothyroid, and dyslipidemia and RBBB presented after tripping and falling on the sidewalk and found to have a L femoral fracture -Mechanical fall/Left femur fracture s/p intramedullary racquel 08/02 -Acute blood loss anemia from intra-op blood loss now with LLE hematoma/mild oozing from the site s/p 3 units PRBC -RBBB, old vs new, evaluated by cardiology pre-operatively -Abdominal distension, improved -NIDDM -HTN -HLD -hypothyroidism -Anxiety Plan: h/h stable. LLE edema suspect from above. LLE doppler neg for DVT. Lovenox total 2 weeks, then ASA 81mg daily/ Resume home meds (patient in telmisartan/Clinidipine/Teneligliptin) as able. CBC in 1 week Ortho follow up in 1 week Continue bowel regimen and PT. Resume home diabetic medications. Dc to SNF today. Plan discussed with patient and all questions answered.
[2017-08-10] MEDS: LOSARTAN POTASSIUM 25 MG TABLET PO SCH (10:02)
[2017-08-10] MEDS: ENOXAPARIN NA (PORCINE) 40 MG/0.4 ML DISP.SYRIN SQ SCH (10:02)
[2017-08-10] MEDS ORDERED: INSULIN (NOVOLOG) ASPART 100 UNITS/ML 10ML VIAL ONE (11:49)
[2017-08-10] MEDS: POLYETHYLENE GLYCOL 3350 119 GM BTL PO SCH (12:19)
[2017-08-10 14:54] VITALS: BP 99/61; PULSE 109; TEMP 98.1
--- NOTE | 2017-08-10 15:12 | DS ---
Physical Exam: SUBJECTIVE: Patient seen and examined - No major overnight events; OOB with walker; Afebrile, slightly tachy to 100s overnight; pain well controlled; no evidence of surgical site infection or active bleed; denies f/c/n/v/d, GRIFFITH, throat pain, cough, SOB, CP, palpitations, ab pain, back pain, FNDs OBJECTIVE: Vital Signs Intake & Output 08/07/17 08/08/17 08/09/17 08/10/17 23:59 23:59 23:59 23:59 Intake Total 800 850 900 875 Output Total 1300 400 Balance -500 850 500 875 Period Temp Pulse Resp BP Sys/Bull Pulse Ox Last 24 Hr 97.6 F-98.8 F 84-109 16-20 99-118/54-67 98-99 PHYSICAL EXAM GENERAL: Elderly woman, NAD HEAD: NCAT EYES: Pupils equal, round and reactive to light, extraocular movements intact, sclera anicteric, conjunctiva clear. No lid lag. EARS, NOSE, THROAT: Poor dentition. Ears normal, nares patent, oropharynx clear without exudates. Moist mucous membranes. NECK: Normal range of motion, supple without lymphadenopathy, JVD, or masses. LUNGS: CTABL. No wheezes, and no crackles. No accessory muscle use. HEART: Regular rate and rhythm, normal S1 and S2 without murmur, rub or gallop. ABDOMEN: Globular. Soft, nontender, normoactive bowel sounds, no guarding, no rebound, no masses. No hepatomegaly or splenomegaly. MUSCULOSKELETAL: Surgical incision site well healed, with no erythema or purulence. Tender with active and passive movement. Normal range of motion at all joints. No bony deformities or tenderness. No CVA tenderness. UPPER EXTREMITIES: 2+ pulses, warm, well-perfused. No cyanosis. No clubbing. No peripheral edema. LOWER EXTREMITIES: 1+ pitting edema to L knee in L leg. 1+ DP/PT pulses BL. Preserved sensation to touch BL in LEs. NEUROLOGICAL: Cranial nerves grossly intact. 5/5 strength and preserved sensation in all extremities BL. LABS Laboratory Results - last 24 hr CBC, BMP 08/09/17 08:14 08/08/17 07:30 08/09/17 08/09/17 08/10/17 14:51 20:43 05:10 POC Glucometer 183 258 101 08/10/17 10:07 POC Glucometer 266 No micro CXR 07/31 - prominent mediastinum; no acute pathology Hip/femur XR 07/31 - Comminuted fx of the proximal femur noted. Abdominal XR 08/01 - abdominal distension compatible with ileus. Left femoral fx. CT L leg 08/04- Impression: Status post op and placement of metallic hardware from femoral shaft fracture. There is significant soft tissue swelling in the proximal and mid thigh with soft tissue air. Focal ill-defined area of heterogeneous density seen just lateral and superior to the left hip measuring 5 x 2.5 cm suggestive of a hematoma. There is also fluid seen along lateral aspect of the entire left thigh with air pockets consistent with postop changes/ collection. Cannot rule out a hematoma. Significant subcutaneous edema/ stranding is present along entire lateral and posterior aspect of the left thigh. No gross vascular extravasation of contrast is identified. Consults: Ortho - Seen by Dr. Shields HOSPITAL COURSE: prehospital: Pt is 71 yo F with pmh of NIDDM, HTN, HLD, hypothyroidism who presents from [place] s/p a mechanical fall this AM. Per record, pt was ambulating in front of house while talking on phone and tripped on "uneven pavement", landing on her L side. After fall, pt endorsed severe pain in anterior thigh and was unable to walk or stand. Family alerted EMS and pt was brought into [facility] ED. On exam, pt very somnolent after receiving multiple rounds of morphine IV. Denied any pain at the time. Per record, pt denies fever, chills, chest pain, sob, N/V, dizziness or lightheadness. ER course was notable for: (1)L femoral XR with comminuted proximal femur fx (2)WBC 11.9 (3)Morphine IV x3 (4/4/2mg) hospital: VSS on admission. WBC ~12, likely reactive. UA negative. Imaging notable for L comminuted proximal femur fx. Pt put on bedrest, splint applied, ortho consulted. Cardiology consulted for clearance; cleared for surgery. Pt taken to OR for surgical correction on 08/02. Intraop course notable for 2units PRBCs given, 600ml EBL, intramedullary racquel/gamma nail placed. Post-op course notable for continual drop in hgb; order for CT L leg, notable for large hematoma. Received 1 unit prbcs with appropriate correction in hgb. Discharge delayed due to issues with insurance coverage, as pt is not citizen and does not have insurance coverage for [facility]. Pt applied for emergency medicare/medicaid with assistance of nephew; received bed at [facility] and was discharge with outpt f/u with Dr. Shields in one week. Date of Admission:07/31/17 Date of Discharge: 08/10/17 Pt is medically stable and cleared for discharge to [facility] with outpt f/u with Dr. Shields (ortho). Minutes to complete discharge: 35 Discharge Summary Reason For Visit: LEFT THIGH PAIN Current Active Problems Diabetes (Acute) Fracture of proximal end of left femur (Acute) HLD (hyperlipidemia) (Acute) HTN (hypertension) (Acute) Hypothyroid (Acute) Leg pain (Acute) Condition: Good - Instructions Diet, Activity, Other Instructions: During your stay at [facility], you received a surgical correction of your left femur fracture. You are recovering from this procedure and will be discharged to short -term rehab to further optimize your recovery in the short term period. You had some problem with bleeding at the surgical site which resolved with no concerns. Medications: The following medications were added to your home regimen. Please take them as specified below: Lovenox 40mg, take one injection once a day for the next week (08/11 - 08/17). While you are taking this medication, please stop taking your home aspirin. After you have completed this two week course of lovenox, please restart taking your aspirin 81mg once a day. If you experience pain at your surgical site, please take tylenol 650mg once every four hours until the pain resolves Please ensure total acetaminophen dose not exceed 4g in 24 hours. Please continue to take all other home medications as previously directed. Follow-ups: Please follow-up with your primary care physician in one week for further management of your medications. Please call their office to schedule an appointment. Please call within one week to schedule an appointment. Please follow-up with your surgeon, Dr. Shields, in one week for further management of your post-op care. His contact number has been provided in this packet. Please call his office to make an appointment. CBC in 1 week at the [facility]. Diet/exercise: You are cleared for a diabetic cardiac diet upon discharge. You are approved for partial weight-bearing on your L leg, which consists of walking with the assistance of a walker. You are cleared for showering with assistance. Please do not drive until you are seen by Dr. Shields in his office in one week. Please return to the hospital if you experience any of the following symptoms: - Worsening pain, swelling or redness or bleeding at the surgical site - Persistent fevers/chills - Numbness, weakness or cold temperature in one or both of your legs or feet - Any loss of bowel or bladder control - Any new or concerning symptoms Referrals: Gideon Shields MD [Staff Physician] - 1 Week Disposition: ASSISTED FACILITY - Home Medications Comprehensive Discharge Medication List: Ambulatory Orders Alprazolam [Xanax] 0.25 mg PO HS 07/31/17 Atorvastatin Ca [Lipitor] 10 mg PO HS 07/31/17 Diclofenac Sodium [Diclofenac Sodium ER] 100 mg PO DAILY PRN 07/31/17 Glimepiride 2 mg PO DAILY 07/31/17 Levothyroxine [Synthroid -] 50 mcg PO DAILY 07/31/17 Mag Hydrox/Aluminum Hyd/Simeth [Gelusil Tablet Chewable] 1 each PO PRN PRN 07/31 Metformin HCl [Metformin HCl ER] 1,000 mg PO DAILY 07/31/17 Nitroglycerin ER Capsule - 2.5 mg PO BID 07/31/17 Pantoprazole Sodium [Protonix -] 40 mg PO DAILY 07/31/17 Patient Specific Medications [Pt Own Med Drawer -] 10 mg PO DAILY 07/31/17 Patient Specific Medications [Pt Own Med Drawer -] 20 mg PO DAILY 07/31/17 Telmisartan [Micardis] 40 mg PO HS 07/31/17 Metformin HCl 1,000 mg PO ACBK 08/01/17 Acetaminophen [Tylenol .Regular Strength -] 650 mg PO Q4H PRN tablet 08/10/17 Docusate Sodium [Colace -] 100 mg PO BID PRN #60 capsule 08/10/17 Enoxaparin [Lovenox -] 40 mg SQ DAILY #7 disp.syrin 08/10/17 Losartan Potassium [Cozaar -] 25 mg PO DAILY #30 tablet 08/10/17 This patient is new to me today: No Emergency Visit: Yes ED Registration Date: 07/31/17 Care time: The patient presented to the Emergency Department on the above date and was hospitalized for further evaluation of their emergent condition. Critical Care patient: No - Discharge Referral Referred to [facility] No
== END 2017-08-10 17:13 | DRG 308 ==
LOC: FER 14:20 → J6S 21:20
PROVIDERS: ADMIT Internal Medicine; ATTEND Hospitalist
PROC: 0QS706Z Reposition Left Upper Femur with Intramedullary Internal Fixation Device, Open Approach (ICD-10-PCS; principal; 2017-07-31)
PROC: 30233H1 Transfusion of Nonautologous Whole Blood into Peripheral Vein, Percutaneous Approach (ICD-10-PCS; 2017-07-31)
DX: S72.062A Displaced articular fracture of head of left femur, initial encounter for closed fracture (principal); K56.7 Ileus, unspecified; E11.9 Type 2 diabetes mellitus without complications; I45.10 Unspecified right bundle-branch block; D62 Acute posthemorrhagic anemia; I10 Essential (primary) hypertension; L76.32 Postprocedural hematoma of skin and subcutaneous tissue following other procedure; Y83.8 Other surgical procedures as the cause of abnormal reaction of the patient, or of later complication, without mention of misadventure at the time of the procedure; W01.0XXA Fall on same level from slipping, tripping and stumbling without subsequent striking against object, initial encounter; E78.5 Hyperlipidemia, unspecified; E03.9 Hypothyroidism, unspecified; F41.9 Anxiety disorder, unspecified; Y93.89 Activity, other specified; Y92.018 Other place in single-family (private) house as the place of occurrence of the external cause; Y99.8 Other external cause status; K59.00 Constipation, unspecified
CPT/HCPCS: 36415; 36430; 71045-TC-FY; 73523-TC-FY; 73552-TC-LT-FY; 73701-TC-RT; 74018-TC-FY; 76000-TC-FY; 80048; 80053; 81003; 82728; 82962; 83540; 83550; 83735; 84100; 85025; 85027; 85610; 85730; 86850; 86900; 86901; 86922; 93005; 93971-TC; 94760; 97116-GP; 97162-GP; 99282-25; J1644; P9038; P9058